=== PATIENT | male | born 1970 | race African-American/Black ===

== ENCOUNTER 2017-02-14 00:31 | Inpatient (IN) ==
[2017-02-14] MEDS ORDERED: ALBUTEROL/IPRATROPIUM 3 ML NEB RESP TX STA (00:50)
[2017-02-14] MEDS ORDERED: methylPREDNISolone SOD SUC 125 MG/2 ML VIAL IV STA (00:50)
[2017-02-14] MEDS ORDERED: SODIUM CHLORIDE 0.9% 2,000 ML IV STA (00:50)
[2017-02-14] MEDS ORDERED: VANCOMYCIN INJ 1,000 MG in SODIUM CHLORIDE 0.9% 250 ML IV STA (00:56)
[2017-02-14] MEDS ORDERED: PIPERACILLIN/TAZOBACTAM 3,375 MG in SODIUM CHLORIDE 0.9% 100 ML IV STA (00:56)
--- NOTE | 2017-02-14 01:01 | Emergency Department Note ---
Arrival - Arrival Chief Complaint: Fever ED Nursing Triage Note: EMS reports that patient has had an elevated temp that began at 16:00 today. Patient was given tylenol at 22:00. EMS states that patient's temp was 102.7 upon arrival to patient's home and that patient was diaphoretic. Patient has a history of paraplegia and is paralyzed from the waist down and contracted. Patient has an indwelling catheter. Recieved 700ml ns prior to arrival to ER. Patient's temperature 100.7 upon triage. 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 Although he was described as talking out of his head earlier, currently he is alert and oriented 3. The family denies any cough, nausea, vomiting, dysuria, or hematuria in recent days. Currently the patient is hypotensive and tachycardic. Onset (ago): hour(s) (Patient presents several hours post onset of symptoms) Allergies/Adverse Reactions: Allergies Allergy/AdvReac Type Severity Reaction Status Date / Time No Known Allergies Allergy Verified 08/28/15 13:56 Review of System - Review of System 12 point system: reviewed and no additional remarkable complaints except as stated - Review of System Constitutional: Present: as per HPI Cardiovascular: Present: as per HPI Genitourinary male: Present: as per HPI Neurological: Present: as per HPI Medical,Surgical,& Family Hx - Medical History Musculoskeletal: History of: Musculoskeletal Problems (paraplegia) - Social History Smoking Status: Never smoker Frequency of Alcohol Use: None Type of Drug Use: None Exam Physical Examination: GENERAL: Thin frail black male in moderate distress. HEENT: Normocephalic. No trauma. Moist mucous membranes. EOMI. PERRLA. ENT NML NECK: Supple. No adenopathy. CARDIAC: Regular. No murmurs. Heart rate 140 CHEST: Scattered occasional expiratory wheeze. No respiratory distress. ABDOMEN: Firm. Tender, very distended bladder. Hypoactive bowel sounds. EXTREMITIES: No trauma. Normal ROM. No pedal edema. SKIN: No diaphoresis. No rash. NEURO: Alert. Oriented 3. Left hemiparesis with upper extremity contractions with right-sided weakness but some preserved motor capabilities. Vital Signs: Vital Signs Temperature 100.7 F H 02/14/17 00:47 Pulse Rate 139 H 02/14/17 01:40 Respiratory Rate 18 02/14/17 01:40 Blood Pressure 69/48 02/14/17 00:47 O2 Sat by Pulse Oximetry 98 02/14/17 01:40 Course Course Narrative: Sinclair catheterization revealed maple syrup like urine in great quantities in excess of a liter drained initially. - Reevaluation(s) Reevaluation #1: Advised patient and family the need for hospitalization - Consultations Consultation #1: Discussed with Dr. Coughlin who will admit for Dr. Lilly for further evaluation treatment. Results - Labs CBC & BMP: 02/14/17 00:51 02/14/17 00:51 Labs: I reviewed the laboratory and noted the borderline white blood cell count, the elevated lactic acid, and the azotemic renal numbers. - Diagnostic Findings Procedure: Chest x-ray: image reviewed by me, report reviewed by me (Normal chest) Disposition Clinical Impression: Urosepsis, Asthma, Renal insufficiency Case discussed with: patient, patient's family Disposition: Still a Patient Condition: Critical Time of Disposition: 01:45
[2017-02-14 01:09] LABS: Basophils % 0.1 % (0.0-0.8); Eosinophils % 0.3 % (0.00-10.9); Hematocrit 35.3 VOL% (42.0-52.0); Hemoglobin 12.2 GM/DL (14.0-18.0); Immature Granulocytes % 1.6 %; Immature Granulocytes Absolute 0.17 #; Lymphocytes # 0.3 10*3/uL (1.4-4.0); Lymphocytes % 2.6 % (21.2-54.2); Mean Corpuscular HGB Conc 34.6 GM/DL (32-36); Mean Corpuscular Hemoglobin 28 PG (27-34); Mean Corpuscular Volume 80.6 FL (87-102); Mean Platelet Volume 9.1 FL (9.6-12.0); Monocytes % 0.3 % (1.7-12.7); Neutrophils % 95.1 % (38.7-73.9); Platelet Count 130 T/CUMM (130-400); Red Blood Count 4.38 MC/CUMM (3.8-5.5); Red Cell Distribution Width 14.7 % (9.3-17.3); White Blood Count 10.6 T/CUMM (4-12)
[2017-02-14] MEDS ORDERED: VANCOMYCIN 1,000 MG VIAL ONE (01:09)
[2017-02-14] MEDS ORDERED: methylPREDNISolone SOD SUC 125 MG/2 ML VIAL ONE (01:09)
[2017-02-14 01:27] LABS: INR 1.3
[2017-02-14] MEDS ORDERED: ALBUTEROL/IPRATROPIUM 3 ML NEB RESP TX PRN (01:34)
[2017-02-14] MEDS ORDERED: ONDANSETRON 4 MG/2 ML VIAL IV PRN (01:34)
[2017-02-14 01:43] LABS: Apearance,Urine Slightly Hazy (Clear); Bacteria,Urine Moderate /HPF (Few); Bilirubin,Urine Negative (Negative); Blood, Urine Moderate mg/dL (Negative); Glucose,Urine (UA) Negative (Negative); Ketones,Urine Negative (Negative); Nitrite,Urine Negative (Negative); Protein,Urine Negative; RBC,Urine <1 /HPF (0-4); Urine Color Yellow (Yellow); Urine Specific Gravity 1.003 (1.001-1.035); Urine Urobilinogen < 2.0 EU/DL (0.2-1.0); WBC,Urine 14 /HPF (0-6)
[2017-02-14 01:43] LABS: Alanine Aminotransferase 80 U/L (16-61); Albumin 2.8 G/DL (3.4-5.0); Alkaline Phosphatase 192 U/L (45-117); Amylase 40 U/L (25-115); Aspartate Amino Transferase 123 U/L (0-37); Blood Urea Nitrogen 28 MG/DL (7-18); Calcium 7.9 MG/DL (8.5-10.1); Glucose 105 MG/DL (74-106); Lactic Acid 3.3 MMOL/L (0.4-2.0); Osmolality,Calculated 267.7 MOS/KG (273-304); Potassium 3.7 MMOL/L (3.5-5.1); Sodium 131 MMOL/L (136-145); Total Protein 6.1 G/DL (6.4-8.3); Troponin I Only < 0.015 NG/ML (0.00-0.045)
[2017-02-14] MEDS ORDERED: methylPREDNISolone SOD SUC 125 MG/2 ML VIAL IV SCH (02:00)
[2017-02-14] MEDS ORDERED: DEXTROSE 5% NACL 0.45% 1,000 ML IV SCH ×2 (02:00→04:53)
[2017-02-14] MEDS: PIPERACILLIN/TAZOBACTAM 3,375 MG in SODIUM CHLORIDE 0.9% 100 ML IV SCH ×3 (03:44→18:20)
[2017-02-14] MEDS: VANCOMYCIN INJ 1,000 MG in SODIUM CHLORIDE 0.9% 250 ML IV SCH (03:44)
[2017-02-14 04:30] LABS: Band Neutrophils 14 % (0-10); Lymphocytes 1 % (20-55); Metamyelocytes 3 %; Myelocytes 2 %; Segmented Neutrophils 80 % (50-85)
[2017-02-14 04:31] LABS: Burr Cells 1+; Platelet Estimate Normal
[2017-02-14 04:32] LABS: Total Cells Counted 100
[2017-02-14] MEDS ORDERED: SODIUM CHLORIDE 0.9% 2,000 ML IV ONE (04:52)
--- NOTE | 2017-02-14 04:52 | EKG Report ---
Stationary ECG Study 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
--- NOTE | 2017-02-14 06:38 | Internal Med History&Physical ---
Assessment and Plan (1) Sepsis Status: Acute Assessment and plan: 46-year-old male admitted to ICU * Sepsis probably related to urinary tract infection. Patient was started on IV antibiotics. Blood and urine cultures were done. Patient apparently developed a rash with vancomycin. Will consult ID to follow patient * Hypotension and tachycardia. Related to above. Patient has been given several fluid boluses. His blood pressure is tending to improve. Clinically he looks okay * History of spinal cord injury with paraplegia. Patient had impaction with was removed * Chronic pain syndrome. He is on multiple pain medications * Decubitus ulcers on his heels. Will consult Dr. shah * Patient is admitted to Dr. reagan service Current Visit: Yes (2) Urinary tract infection Status: Acute Current Visit: Yes (3) Hypotension Status: Acute Current Visit: Yes (4) Paraplegia Status: Acute Current Visit: Yes (5) Spinal cord injury Status: Acute Current Visit: Yes (6) History of DVT (deep vein thrombosis) Status: Acute Current Visit: Yes History of Present Illness Chief complaint: Fever and not feeling well History of present illness: Mr. George is a 46 year old male with history of paraplegia, DVT and IVC filter placement, left-sided hemiparesis and brain injury secondary to a fall from a bridge few years ago on disability. He went to the emergency room with fever and not feeling well. Patient had high-grade fever at home and was diaphoretic. He was evaluated in the emergency room and was found to have acute renal failure with urinary tract infection. He was hypertensive and tachycardic. He was admitted to the intensive care unit. Patient states that he feels better. He lives at home with his mother. He has a home health who comes and takes care of him. He has recently started seeing Dr. reagan. He denies any chest pain or shortness of breath. He denies any nausea vomiting or diarrhea. Patient is a smoker. Home Medications Medication Instructions Recorded Confirmed Type Baclofen [Baclofen] 10 mg PO TID W/MEALS 02/14/17 02/14/17 History Gabapentin [Gabapentin] 600 mg PO QID 02/14/17 02/14/17 History Hydrocodone/Acetaminophen [[place] 1 each PO TID PRN 02/14/17 02/14/17 History 10-325 Tablet] Rivaroxaban [Xarelto] 20 mg PO DAILY 02/14/17 02/14/17 History fentaNYL [Fentanyl 25 mcg/hr Patch] 25 patch TOP Q3DAY 02/14/17 02/14/17 History Allergies Allergy/AdvReac Type Severity Reaction Status Date / Time No Known Allergies Allergy Verified 08/28/15 13:56 Medical,Surgical,& Family Hx - Medical History Neurology: History of: Peripheral Neuropathy, Neurological Problems (History of paraplegia after a fall and suffering accident) Genitourinary: History of: Bladder Problem (Neurogenic Bladder) Musculoskeletal: History of: Back/Neck Problems (spinal cord injury), Musculoskeletal Problems (paraplegia) Other: History of: Miscellaneous Medical Problems (Lower Extremity DVT Chronic pain) - Surgical History Orthopedic Surgeries: Surgical HX of;: Implanted Devices (IVC filter) - Family History Family History: Reports;: Family Cancer (Brother), Family Diabetes (Mother), Family Heart Disease (Aunts), Family Hypertension (Mother Sisters) - Social History Smoking Status: Never smoker Frequency of Alcohol Use: None Type of Drug Use: None Marital Status: Single Lives With:: Parent (Mother) Functional capacity: wheelchair bound 12 point system: reviewed and no additional remarkable complaints except as stated (As mentioned in HPI) Exam - Constitutional Vitals: Period Temp Pulse Resp BP Sys/Ribera Pulse Ox Last 24 Hr 99.3 F-100.7 F 117-141 14-24 58-88/41-52 95-100 Exam: Examination: GENERAL: NAD. HEENT: PERRLA. EOMI. Mucous membranes are dry NECK: Neck is supple. No JVD. No carotid bruit. No thyromegaly. CVS: Regular rate and rhythm. S1 and S2 are normal. Tachycardic. RESPIRATORY: Lungs are clear. No rales or rhonchi. ABDOMEN: Soft and nontender. Bowel sounds are present. No hepatosplenomegaly. EXT: No edema. Peripheral pulses are present. MANAGER RELATIONSHIP: Patient is awake, alert and oriented to time place and person. Cranial nerves II through XII are grossly intact. Patient is a paraplegic with 2/5 in left upper extremity and 3/5 in right upper extremity SKIN: Warm and dry. Decubitus ulcer on the left heel. Superficial on the right heel MSK: Patient has contracture of both upper extremities left more than right. Results - Labs CBC & BMP: 02/14/17 00:51 02/14/17 00:51 Lab Results: I have reviewed the past 24 hour labs
--- NOTE | 2017-02-14 07:06 | EKG Report ---
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
--- NOTE | 2017-02-14 07:17 | XRay Report ---
XR chest 1V portable Indication: Shortness of breath, fever Comparison: None available Findings: The heart and mediastinum are normal in size and configuration. The pulmonary vascularity is normal in caliber. No lung infiltrates, effusions, pneumothorax or other abnormality is demonstrated. Impression: Normal chest x-ray PROCEDURE INTERPRETED AT [facility] [place] DEPARTMENT OF RADIOLOGY Final Report Signed by: Dr. Timi Wolff
--- NOTE | 2017-02-14 07:26 | CT Report ---
CT brain Indication: Altered mental status Comparison: None available Technique: Axial CT imaging of the brain is performed without contrast with 3 mm increments. Findings: No evidence of hemorrhage, mass mass effect midline shift or acute infarct seen. The brain parenchyma attenuation and differentiation appears within normal limits. The ventricles and cisterns are normal in caliber. No cranial or skull base abnormality is identified. Impression: No evidence of abnormality demonstrated. This CT exam was performed using one or more the following dose reduction techniques: Automated exposure control, adjustment of the MA and/or KV according to patient size, or use of iterative reconstruction technique. PROCEDURE INTERPRETED AT [facility] DEPARTMENT OF RADIOLOGY Final Report Signed by: Dr. Timi Wolff
[2017-02-14 07:34] LABS: Alanine Aminotransferase 71 U/L (16-61); Albumin 2.1 G/DL (3.4-5.0); Alkaline Phosphatase 91 U/L (45-117); Aspartate Amino Transferase 84 U/L (0-37); Blood Urea Nitrogen 26 MG/DL (7-18); Calcium 6.8 MG/DL (8.5-10.1); Glucose 155 MG/DL (74-106); Osmolality,Calculated 277.1 MOS/KG (273-304); Potassium 3.7 MMOL/L (3.5-5.1); Sodium 135 MMOL/L (136-145); Total Protein 4.9 G/DL (6.4-8.3); Troponin I Only 0.015 NG/ML (0.00-0.045)
[2017-02-14] MEDS: SODIUM CHLORIDE 0.9% 1,000 ML IV SCH ×3 (08:00→21:25)
--- NOTE | 2017-02-14 08:53 | Family Practice Progress Note ---
Family Practice - PN: Subj Interval history: Patient seen and examined in the ICU, admitted for altered mental status, intravascular volume depletion,urosepsis Overnight he had an event of A. fib, Temperature is improving, last temp 99.8 Patient mentions he is feeling a bit better than yesterday. Had some breakfast this a.m., no nausea or vomiting. Patient was using urinal /and catheter at home, he had noticed decreased urine output since past 3-4 days. No burning micturition(patient has paraplegia). Patient keeps heater in the room does not have air on in his home, as per the mother, the caregiver, Patient is on chronic pain medication, goes to pain clinic with ,([place] , fentanyl patch, baclofen, gabapentin noted from the clinic notes) He has home physical therapy and home health. And is wheelchair bound at home. Exam (Progress Note) - Constitutional Vitals: Period Temp Pulse Resp BP Sys/Ribera Pulse Ox Last 24 Hr 99.3 F-100.7 F 111-141 14-24 58-88/41-54 95-100 Exam: GENERAL APPEARANCE: alert and oriented X3, , in no acute distress, Has indwelling catheter in place. HEENT: normal. EYES: extraocular movement intact (EOMI), conjunctiva clear, normal. NECK/THYROID: neck supple, full range of motion, no cervical lymphadenopathy, no thyromegaly. HEART: Tachycardic at the time of exam ,? Regular rhythm, no murmurs, rubs, gallops. LUNGS: clear to auscultation bilaterally, no wheezes, rales, rhonchi. ABDOMEN: Mildly distended, nontender. no organomegaly , bowel sounds present. EXTREMITIES: no edema. Decubitus foot ulcers NEUROLOGIC: alert and oriented, cranial nerves 2-12 grossly intact, strength UE , right3/5, left2/5. Lower extremity strength bilaterally 1 /5 with contracture at left upper extremity more than right. Results - Labs CBC & BMP: 02/14/17 00:51 02/14/17 06:49 Lab Results: I have reviewed the past 24 hour labs Labs: From 01/01/2017 clinic labs Baseline H&H 13.7/43.9, BUN/creatinine 11/0.77 - Impressions Reviewed chest x-ray and CT head reports Assessment and Plan (1) Sepsis Status: Acute Assessment and plan: Secondary to UTI, On day 1 , Zosyn, Vanc, ID consult done. Awaiting blood and urine culture results. 2. Hypotension, secondary to sepsis, continue IV fluids, normal saline. 3. History of DVT, on Xarelto, continue. 4. Paraplegia, chronic secondary to cervical spinal cord injury, has decubitus ulcers, consult surgery. 5. Current Visit: Yes (2) Urinary tract infection Status: Acute Current Visit: Yes (3) History of DVT (deep vein thrombosis) Status: Chronic Current Visit: Yes (4) Hypotension Status: Acute Current Visit: Yes (5) Paraplegia Status: Chronic Current Visit: Yes (6) Spinal cord injury Status: Chronic Current Visit: Yes (7) Chronic constipation Status: Chronic Current Visit: Yes
[2017-02-14] MEDS: PANTOPRAZOLE 40 MG TABLET PO SCH (09:10)
[2017-02-14] MEDS: GABAPENTIN 600 MG TABLET PO SCH ×4 (09:10→21:24)
[2017-02-14] MEDS: RIVAROXABAN 20 MG TABLET PO SCH (09:11)
--- NOTE | 2017-02-14 10:43 | Cardiology Consult Note ---
Assessment and Plan - Time spent with patient Time spent with patient: Greater than 30 minutes (1) New onset atrial fibrillation Status: Acute Assessment and plan: SEE PLAN OF CARE LISTED BELOW. Current Visit: Yes (2) Acute kidney injury Status: Acute Assessment and plan: SEE PLAN OF CARE LISTED BELOW. Current Visit: Yes (3) Sepsis Status: Suspected Assessment and plan: SEE PLAN OF CARE LISTED BELOW. Current Visit: Yes (4) Presence of IVC filter Status: Chronic Assessment and plan: SEE PLAN OF CARE LISTED BELOW. Current Visit: Yes (5) Decubitus ulcer of right heel, stage 1 Status: Acute Assessment and plan: SEE PLAN OF CARE LISTED BELOW. Current Visit: Yes (6) Chronic constipation Status: Chronic Assessment and plan: SEE PLAN OF CARE LISTED BELOW. Current Visit: Yes (7) History of DVT (deep vein thrombosis) Status: Chronic Assessment and plan: SEE PLAN OF CARE LISTED BELOW. Current Visit: No (8) Paraplegia Status: Chronic Assessment and plan: SEE PLAN OF CARE LISTED BELOW. Current Visit: No (9) Spinal cord injury Status: Chronic Assessment and plan: SEE PLAN OF CARE LISTED BELOW. Current Visit: No History of Present Illness - Data of Consult Patient: new to practice Consult date: 02/14/17 Requesting Physician: Matthias Lilly - Consult Narrative Reason for consult: NEW ONSET AFIB History of present illness: Youth Counselor: John Summers Mr. George is a 46 year old male without known history of coronary artery disease , not routinely followed by cardiology. Patient has cardiac risk factors significant for sedentary lifestyle. He has a past medical history of DVT with IVC filter. 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 Paralyzed from the waist down. Patient has never been seen by cardiology. Patient presented to [facility] yesterday with altered mental status and fever. Patient reports that he developed fever Friday afternoon. He also had associated headache intermittent confusion, diaphoresis and dizziness. He is wheelchair-bound at home. He denies any associated chest pain, heaviness or tightness. No associated shortness of breath, dysuria or hematuria. He does confirm a cough. Nonproductive. He denies any heart racing or palpitations. Never been diagnosed with atrial fibrillation or any other cardiac dysrhythmias. Patient's caregiver noticed that he was intermittently confused and talking out of his head. Therefore, she thought that he needed to be further evaluated in the emergency department. Upon arrival to the emergency room, he was noted to be in sinus tachycardia and hypotensive. He was transported to the ICU and admitted under hospital medicine service. Overnight, he was noted to be in atrial fibrillation with intermittent rapid ventricular response. Subsequently, cardiology has been consulted as this is a new diagnosis. Patient was seen and examined with Dr. Summers in the ICU. He continues to be in atrial fibrillation. Now he is rate controlled, heart rates in the 90s. He has been hypotensive overnight. However, this has resolved in systolic blood pressure is in the low 100s at present. Recommend continuation of aggressive IV fluids. Patient's new onset of atrial fibrillation is most likely secondary to his acute illness. At this point, we will continue to anticoagulate him with Xarelto. Will rate control with beta-sherrie when his blood pressure will allow. Can consider adding amiodarone. If RVR returns, can consider cardioversion as patient is chronically anticoagulated. Echocardiogram has been ordered. If cardiomyopathy is present can consider cardioversion. Further recommendations to follow per Dr. Summers. ASSESSMENT/PLAN 1. NEW ONSET ATRIAL FIBRILLATION - Upon arrival to the emergency department, patient was noted to be in sinus tachycardia. Overnight, he converted to atrial fibrillation with episodes of rapid ventricular response. He continues to be in atrial fibrillation, now rate controlled. This is most likely secondary to patient's acute illness. At this point, we will continue to anticoagulate him with Xarelto. Will optimize his rate with beta-sherrie when his blood pressure will allow. Can consider amiodarone if needed. If RVR returns, can consider cardioversion as patient is chronically anticoagulated. Echocardiogram has been ordered. If cardiomyopathy is present can consider cardioversion. Further recommendations to follow per Dr. Summers. 2. ACUTE KIDNEY INJURY - Sepsis is suspected. Continue IVF's. Blood pressure has improved. Renal US ordered. Daily BMP. 3. UROSEPSIS - Continue IV antibiotics, IV fluids. Blood cultures pending. Management per attending/Infectious diseases. 4. HISTORY OF DVT - Continue Xarelto. IVC filter in place. 5. PARAPLEGIA, SPINAL CORD INJURY - Continue current plan of care 6. DECUBITUS ULCERS TO HEELS - Dr. Otero is following. 7. CHRONIC PAIN SYNDROME - Defer to attending. 8. CHRONIC CONSTIPATION - Defer management to attending TAD TO COMPLETE, CRAIG IS NOT WORKING. CC: Matthias Lilly MD - Home Medications and Allergies Home Medications: Home Medications Medication Instructions Recorded Confirmed Type Baclofen [Baclofen] 10 mg PO TID W/MEALS 02/14/17 02/14/17 History Gabapentin [Gabapentin] 600 mg PO QID 02/14/17 02/14/17 History Hydrocodone/Acetaminophen [[place] 1 each PO TID PRN 02/14/17 02/14/17 History 10-325 Tablet] Rivaroxaban [Xarelto] 20 mg PO DAILY 02/14/17 02/14/17 History fentaNYL [Fentanyl 25 mcg/hr Patch] 25 patch TOP Q3DAY 02/14/17 02/14/17 History Allergies/Adverse Reactions: Allergies Allergy/AdvReac Type Severity Reaction Status Date / Time No Known Allergies Allergy Verified 08/28/15 13:56 - Constitutional Constitutional: Present: as per HPI, chills, fatigue, fever(s), headache(s), malaise - Cardiovascular Cardiovascular: Present: as per HPI, diaphoresis, lightheadedness. Absent: chest pain at rest, chest pain with activity, claudication, dyspnea, dyspnea on exertion, edema, radiating jaw, neck or arm pain, orthopnea, palpitations, PND - Respiratory Respiratory: Present: as per HPI, cough. Absent: dyspnea, hemoptysis, dyspnea on exertion, wheezing, snoring, pain on inspiration - Neurological Neurological: Present: as per HPI, confusion, dizziness, headache(s). Absent: syncope Medical,Surgical,& Family Hx - Medical History Neurology: History of: Peripheral Neuropathy, Neurological Problems (History of paraplegia after a fall and suffering accident) Genitourinary: History of: Bladder Problem (Neurogenic Bladder) Musculoskeletal: History of: Back/Neck Problems (spinal cord injury), Musculoskeletal Problems (paraplegia) Other: History of: Miscellaneous Medical Problems (Lower Extremity DVT Chronic pain) - Surgical History Orthopedic Surgeries: Surgical HX of;: Implanted Devices (IVC filter) - Family History Family History: Reports;: Family Cancer (Brother), Family Diabetes (Mother), Family Hypertension (Mother Sisters) - Social History Smoking Status: Never smoker Frequency of Alcohol Use: None Type of Drug Use: None Functional capacity: wheelchair bound Physical Examination Vital Signs Pulse Ox 96 02/14/17 00:31 Exam: General: Appears well with no apparent distress. HEENT: PERRL, normocephalic, atraumatic. Mucous membranes moist. No jaundice noted. Conjunctiva moist and clear, sclerae anicteric Neck: No JVD/HJR, no thyromegaly or lymphadenopathy noted. Cardiac: Irregular rhythm, rate controlled. Lungs: Clear to auscultation without accessory muscle use to assist the respiratory pattern. Oxygen via nasal cannula. Abdomen: Soft, bowel sounds hypoactive. Nontender and nondistended. Extremities: No clubbing, cyanosis noted. No edema noted. Upper extremity pulses 2+. Lower extremity pulses 2+. Capillary refill less than 3 seconds. Skin: Small skin tear noted to sacrum. Decubitus ulcers noted to bilateral heels. Neuro: Awake, alert and oriented 3. Paraplegic. Result/EKG - Labs CBC & BMP: 02/14/17 00:51 02/14/17 06:49 Lab Results: I have reviewed the past 24 hour labs Labs: Laboratory Results - last 24 hr 02/14/17 02/14/17 02/14/17 00:51 00:51 00:51 WBC 10.6 RBC 4.38 Hgb 12.2 L Hct 35.3 L MCV 80.6 L MCH 28 MCHC 34.6 RDW 14.7 Plt Count 130 MPV 9.1 L Neut % (Auto) 95.1 H Lymph % (Auto) 2.6 L Person % (Auto) 0.3 L Eos % (Auto) 0.3 Baso % (Auto) 0.1 Neut # (Auto) 10.0 H Lymph # (Auto) 0.3 L Person # (Auto) 0.0 L Eos # (Auto) 0.0 Baso # (Auto) 0.0 Total Counted 100 Immature Gran % 1.6 Nucleated RBC % 0.0 Immature Gran # 0.17 Segmented Neutrophils 80 Band Neutrophils 14 H Lymphocytes 1 L Metamyelocytes 3 Myelocytes 2 Nucleated RBCs # 0.00 Platelet Estimate Normal Immature Plt Fraction 0.0 [place] Cells 1+ INR 1.3 PT Patient/Control Mix 14.0 Circ Anticoag PTT Sodium 131 L Potassium 3.7 Chloride 99 Carbon Dioxide 21 Anion Gap 14.7 BUN 28 H Creatinine 2.50 H GFR Calculation 36 BUN/Creatinine Ratio 11.00 Glucose 105 Calculated Osmolality 267.7 L Lactic Acid 3.3 H Calcium 7.9 L Total Bilirubin 0.60 AST 123 H ALT 80 H Alkaline Phosphatase 192 H Lactate Dehydrogenase 249 H Total Creatine Kinase 183 CK-MB (CK-2) 1.5 Troponin I < 0.015 Total Protein 6.1 L Albumin 2.8 L Globulin 3.3 Albumin/Globulin Ratio 0.8 L Amylase 40 Lipase 85.0 Urine Color Urine Appearance Urine pH Ur Specific [place] Urine Protein Urine Glucose (UA) Urine Ketones Urine Blood Urine Nitrate Urine Bilirubin Urine Urobilinogen Urine Leukocytes Urine RBC Urine WBC Urine Bacteria Ur Culture Indicated? 02/14/17 02/14/17 02/14/17 01:01 01:01 06:49 WBC RBC Hgb Hct MCV MCH MCHC RDW Plt Count MPV Neut % (Auto) Lymph % (Auto) Person % (Auto) Eos % (Auto) Baso % (Auto) Neut # (Auto) Lymph # (Auto) Person # (Auto) Eos # (Auto) Baso # (Auto) Total Counted Immature Gran % Nucleated RBC % Immature Gran # Segmented Neutrophils Band Neutrophils Lymphocytes Metamyelocytes Myelocytes Nucleated RBCs # Platelet Estimate Immature Plt Fraction [place] Cells INR PT Patient/Control Mix Circ Anticoag PTT 35.9 Sodium 135 L Potassium 3.7 Chloride 106 Carbon Dioxide 17 L Anion Gap 15.7 H BUN 26 H Creatinine 2.10 H GFR Calculation 46 BUN/Creatinine Ratio 12.00 Glucose 155 H Calculated Osmolality 277.1 Lactic Acid Calcium 6.8 L Total Bilirubin 0.60 AST 84 H ALT 71 H Alkaline Phosphatase 91 Lactate Dehydrogenase Total Creatine Kinase 181 CK-MB (CK-2) 2.2 Troponin I 0.015 Total Protein 4.9 L Albumin 2.1 L Globulin 2.8 Albumin/Globulin Ratio 0.7 L Amylase Lipase Urine Color Yellow Urine Appearance Slightly hazy Urine pH 7.0 Ur Specific [place] 1.003 Urine Protein Negative Urine Glucose (UA) Negative Urine Ketones Negative Urine Blood Moderate Urine Nitrate Negative Urine Bilirubin Negative Urine Urobilinogen < 2.0 H Urine Leukocytes Large H Urine RBC <1 Urine WBC 14 Urine Bacteria Moderate Ur Culture Indicated? Results to follow 02/14/17 06:49 WBC RBC Hgb Hct MCV MCH MCHC RDW Plt Count MPV Neut % (Auto) Lymph % (Auto) Person % (Auto) Eos % (Auto) Baso % (Auto) Neut # (Auto) Lymph # (Auto) Person # (Auto) Eos # (Auto) Baso # (Auto) Total Counted Immature Gran % Nucleated RBC % Immature Gran # Segmented Neutrophils Band Neutrophils Lymphocytes Metamyelocytes Myelocytes Nucleated RBCs # Platelet Estimate Immature Plt Fraction [place] Cells INR PT Patient/Control Mix Circ Anticoag PTT Sodium Potassium Chloride Carbon Dioxide Anion Gap BUN Creatinine GFR Calculation BUN/Creatinine Ratio Glucose Calculated Osmolality Lactic Acid 3.7 H Calcium Total Bilirubin AST ALT Alkaline Phosphatase Lactate Dehydrogenase Total Creatine Kinase CK-MB (CK-2) Troponin I Total Protein Albumin Globulin Albumin/Globulin Ratio Amylase Lipase Urine Color Urine Appearance Urine pH Ur Specific [place] Urine Protein Urine Glucose (UA) Urine Ketones Urine Blood Urine Nitrate Urine Bilirubin Urine Urobilinogen Urine Leukocytes Urine RBC Urine WBC Urine Bacteria Ur Culture Indicated?
[2017-02-14] MEDS ORDERED: CHLORHEXIDINE 4% SOLN 118 ML BOTTLE TOP ONE (11:05)
--- NOTE | 2017-02-14 11:12 | General Surgery Consult Note ---
Assessment and Plan - Time spent with patient Time spent with patient: Greater than 30 minutes (1) Decubitus ulcer of right heel, stage 1 Status: Acute Assessment and plan: Impression: Stage I decubitus right heel and first metatarsal head area Plan: Wound care with offloading and padding Current Visit: Yes (2) Spinal cord injury Status: Chronic Assessment and plan: Impression: Quadriplegia functional Plan: Protective care sacrum and hip and back Current Visit: Yes (3) History of DVT (deep vein thrombosis) Status: Chronic Assessment and plan: Impression: History of DVT Plan: Lovenox and compression stockings Current Visit: Yes (4) Sepsis Status: Acute Assessment and plan: Impression: Sepsis with hypotension probably urosepsis Plan: Antibiotics and hospitalist following Current Visit: Yes History of Present Illness Chief complaint: Right heel ulcer History of present illness: Mr. George is a 46 year old male -[place] who is a functional quad from the cervical spine injury. He is in with urosepsis and we were asked to see him for heel ulcers. On exam there was no ulcer on the left heel the right seem to have no chronic eschar possibly an old ulcer is mostly healed. There is another little callused area on the foot and there is a questionable spot on the left great toe that needs to be observed. No true breakdown or ulcerations present at this time but will start some wound care to try to get these things improved. Home Medications Medication Instructions Recorded Confirmed Type Baclofen [Baclofen] 10 mg PO TID W/MEALS 02/14/17 02/14/17 History Gabapentin [Gabapentin] 600 mg PO QID 02/14/17 02/14/17 History Hydrocodone/Acetaminophen [[place] 1 each PO TID PRN 02/14/17 02/14/17 History 10-325 Tablet] Rivaroxaban [Xarelto] 20 mg PO DAILY 02/14/17 02/14/17 History fentaNYL [Fentanyl 25 mcg/hr Patch] 25 patch TOP Q3DAY 02/14/17 02/14/17 History Allergies Allergy/AdvReac Type Severity Reaction Status Date / Time No Known Allergies Allergy Verified 08/28/15 13:56 Medical,Surgical,& Family Hx - Medical History Neurology: History of: Peripheral Neuropathy, Neurological Problems (History of paraplegia after a fall and suffering accident) Genitourinary: History of: Bladder Problem (Neurogenic Bladder) Musculoskeletal: History of: Back/Neck Problems (spinal cord injury), Musculoskeletal Problems (paraplegia) Other: History of: Miscellaneous Medical Problems (Lower Extremity DVT Chronic pain) - Surgical History Orthopedic Surgeries: Surgical HX of;: Implanted Devices (IVC filter) - Family History Family History: Reports;: Family Cancer (Brother), Family Diabetes (Mother), Family Heart Disease (Aunts), Family Hypertension (Mother Sisters) - Social History Smoking Status: Never smoker Frequency of Alcohol Use: None Type of Drug Use: None 12 point system: reviewed and no additional remarkable complaints except as stated Exam - Constitutional Vitals: Period Temp Pulse Resp BP Sys/Ribera Pulse Ox Last 24 Hr 99.3 F-100.7 F 98-141 14-24 58-106/41-69 95-100 General appearance: no acute distress, other (Paraplegic, alert and oriented; cooperative and an accurate historian) - Head Head exam: Present: normal inspection - ENT ENT exam: Present: normal exam - Neck Neck exam: Present: normal inspection - Respiratory Respiratory exam: Present: clear to auscultation bilaterally - Cardiovascular Cardiovascular exam: Present: RRR - GI/Abdominal GI/Abdominal exam: Present: hypoactive bowel sounds, soft - Extremities Exam Extremities exam: Present: other (Small abrasion are callus of the right heel and of the medial first metatarsal. No ulcer on the left heel but there is a little blister area on the left great toe. Pulses are palpable 3+ dorsalis pedis) - Back Exam Back exam: Present: normal inspection - Neurological Exam Neurological exam: Present: alert, oriented X3, CN II-XII intact, other ( Paralyzed from the neck down with some function of the upper extreme) - Skin Skin exam: Present: normal color, warm, dry Results - Labs CBC & BMP: 02/14/17 00:51 02/14/17 06:49 Lab Results: I have reviewed the past 24 hour labs
--- NOTE | 2017-02-14 12:13 | Infectious Disease Consult ---
History of Present Illness Chief complaint: Sepsis History of present illness: Mr. George is a 46 year old male who is a functional quadriplegic since the past 2 years presented to hospital yesterday after he was experiencing worsening malaise and generalized body aches and fever for 2 days prior. He had decubitus ulcers in the past but those have healed, he has of condom catheter at baseline. He has not been having any cough or shortness of breath, no vomiting or diarrhea but he has been anorexic with a bit of nausea. He was febrile to 100.7 on admission and had some pyuria. He was put on empiric vancomycin and Zosyn and I am asked to assist with management. Impression: SIRS -it is not obvious that is whether the patient has an infection. He did have mild pyuria so UTI is possible but not definite. He does not have any open wounds and x-rays completely clear. We need to check for possible bloodstream infection. Recommendations: I agree with current empiric antibiotics. Monitor renal function closely on the vancomycin. If the blood cultures are negative at day 3 and the patient is clinically better than I would probably stop antibiotics. Thank you very much for the consult. Will follow. Discussed with patient's mother at bedside. Home Medications Medication Instructions Recorded Confirmed Type Baclofen [Baclofen] 10 mg PO TID W/MEALS 02/14/17 02/14/17 History Gabapentin [Gabapentin] 600 mg PO QID 02/14/17 02/14/17 History Hydrocodone/Acetaminophen [[place] 1 each PO TID PRN 02/14/17 02/14/17 History 10-325 Tablet] Rivaroxaban [Xarelto] 20 mg PO DAILY 02/14/17 02/14/17 History fentaNYL [Fentanyl 25 mcg/hr Patch] 25 patch TOP Q3DAY 02/14/17 02/14/17 History Allergies Allergy/AdvReac Type Severity Reaction Status Date / Time No Known Allergies Allergy Verified 08/28/15 13:56 12 point system: reviewed and no additional remarkable complaints except as stated (Per HPI) Medical,Surgical,& Family Hx - Medical History Neurology: History of: Peripheral Neuropathy, Neurological Problems (History of paraplegia after a fall and suffering accident) Genitourinary: History of: Bladder Problem (Neurogenic Bladder) Musculoskeletal: History of: Back/Neck Problems (spinal cord injury), Musculoskeletal Problems (paraplegia) Other: History of: Miscellaneous Medical Problems (Lower Extremity DVT Chronic pain) - Surgical History Orthopedic Surgeries: Surgical HX of;: Implanted Devices (IVC filter) - Family History Family History: Reports;: Family Cancer (Brother), Family Diabetes (Mother), Family Heart Disease (Aunts), Family Hypertension (Mother Sisters) - Social History Smoking Status: Never smoker Frequency of Alcohol Use: None Type of Drug Use: None Infectious Disease Exam H&P - Constitutional Vitals: Vital Signs Temp Pulse Resp BP Pulse Ox 99.7 F H 105 H 13 107/82 97 02/14/17 05:01 02/14/17 11:00 02/14/17 11:00 02/14/17 11:00 02/14/17 11:00 Intake and Output 02/13/17 02/14/17 02/14/17 23:59 07:59 15:59 Intake Total 4880 / 4880 120 / 120 Output Total 1200 / 1200 1401 / 1401 Balance 3680 / 3680 -1281 / -1281 Intake: IV 4750 / 4750 D5 1/2Ns 1,000 ml @ 125 400 / 400 mls/hr IV .Q8H ERINN Rx#: [id number] Zosyn 3,375 mg In Ns 100 100 / 100 ml @ 25 mls/hr IV 1X ED STA Rx#:[id number] Ns 2,000 ml @ 999 mls/hr 4000 / 4000 IV BOLUS ONE Rx#: [id number] Vancomycin Inj 1,000 mg 250 / 250 In Ns 250 ml @ 250 mls/hr IV 1X ED STA Rx#: [id number] Oral 130 / 130 120 / 120 Output: Urine 500 / 500 1400 / 1400 Post Void Residual Amount 700 / 700 Uretheral (Sinclair) 700 / 700 Stool / Other: Voiding Method Indwelling Catheter Indwelling Catheter # Bowel Movements 1 1 Weight 71.668 kg Patient Weight 02/14/17 23:59 Weight 71.668 kg Exam: General: Patient comfortable, nontoxic appearing, he is quite conversant HEENT: Mucous membranes pink and moist, anicteric acyanotic, AGUSTIN, no oropharyngeal exudates Neck: Supple, no thyroid gland enlargement Respiratory system: Breath sounds vesicular, no crepitations or wheezes Cardiovascular: Normal S1 and S2, no murmurs appreciated Abdomen: Normal bowel sounds, soft nontender throughout, no organomegaly or mass Genitourinary: No suprapubic pain or bladder distention, crystal clear urine from Sinclair catheter Extremities: no edema, healed ulcer to left heel Skin: No rash, hypopigmentation and sacral area from healed ulcer Reports - Labs CBC & BMP: 02/14/17 00:51 02/14/17 06:49 Labs: Laboratory Results - last 24 hr 02/14/17 02/14/17 02/14/17 00:51 00:51 00:51 WBC 10.6 RBC 4.38 Hgb 12.2 L Hct 35.3 L MCV 80.6 L MCH 28 MCHC 34.6 RDW 14.7 Plt Count 130 MPV 9.1 L Neut % (Auto) 95.1 H Lymph % (Auto) 2.6 L [place] % (Auto) 0.3 L Eos % (Auto) 0.3 Baso % (Auto) 0.1 Neut # (Auto) 10.0 H Lymph # (Auto) 0.3 L [place] # (Auto) 0.0 L Eos # (Auto) 0.0 Baso # (Auto) 0.0 Total Counted 100 Immature Gran % 1.6 Nucleated RBC % 0.0 Immature Gran # 0.17 Segmented Neutrophils 80 Band Neutrophils 14 H Lymphocytes 1 L Metamyelocytes 3 Myelocytes 2 Nucleated RBCs # 0.00 Platelet Estimate Normal Immature Plt Fraction 0.0 [place] Cells 1+ INR 1.3 PT Patient/Control Mix 14.0 Circ Anticoag PTT Sodium 131 L Potassium 3.7 Chloride 99 Carbon Dioxide 21 Anion Gap 14.7 BUN 28 H Creatinine 2.50 H GFR Calculation 36 BUN/Creatinine Ratio 11.00 Glucose 105 Calculated Osmolality 267.7 L Lactic Acid 3.3 H Calcium 7.9 L Total Bilirubin 0.60 AST 123 H ALT 80 H Alkaline Phosphatase 192 H Lactate Dehydrogenase 249 H Total Creatine Kinase 183 CK-MB (CK-2) 1.5 Troponin I < 0.015 Total Protein 6.1 L Albumin 2.8 L Globulin 3.3 Albumin/Globulin Ratio 0.8 L Amylase 40 Lipase 85.0 Urine Color Urine Appearance Urine pH Ur Specific [place] Urine Protein Urine Glucose (UA) Urine Ketones Urine Blood Urine Nitrate Urine Bilirubin Urine Urobilinogen Urine Leukocytes Urine RBC Urine WBC Urine Bacteria Ur Culture Indicated? 02/14/17 02/14/17 02/14/17 01:01 01:01 06:49 WBC RBC Hgb Hct MCV MCH MCHC RDW Plt Count MPV Neut % (Auto) Lymph % (Auto) [place] % (Auto) Eos % (Auto) Baso % (Auto) Neut # (Auto) Lymph # (Auto) [place] # (Auto) Eos # (Auto) Baso # (Auto) Total Counted Immature Gran % Nucleated RBC % Immature Gran # Segmented Neutrophils Band Neutrophils Lymphocytes Metamyelocytes Myelocytes Nucleated RBCs # Platelet Estimate Immature Plt Fraction [place] Cells INR PT Patient/Control Mix Circ Anticoag PTT 35.9 Sodium 135 L Potassium 3.7 Chloride 106 Carbon Dioxide 17 L Anion Gap 15.7 H BUN 26 H Creatinine 2.10 H GFR Calculation 46 BUN/Creatinine Ratio 12.00 Glucose 155 H Calculated Osmolality 277.1 Lactic Acid Calcium 6.8 L Total Bilirubin 0.60 AST 84 H ALT 71 H Alkaline Phosphatase 91 Lactate Dehydrogenase Total Creatine Kinase 181 CK-MB (CK-2) 2.2 Troponin I 0.015 Total Protein 4.9 L Albumin 2.1 L Globulin 2.8 Albumin/Globulin Ratio 0.7 L Amylase Lipase Urine Color Yellow Urine Appearance Slightly hazy Urine pH 7.0 Ur Specific [place] 1.003 Urine Protein Negative Urine Glucose (UA) Negative Urine Ketones Negative Urine Blood Moderate Urine Nitrate Negative Urine Bilirubin Negative Urine Urobilinogen < 2.0 H Urine Leukocytes Large H Urine RBC <1 Urine WBC 14 Urine Bacteria Moderate Ur Culture Indicated? Results to follow 02/14/17 06:49 WBC RBC Hgb Hct MCV MCH MCHC RDW Plt Count MPV Neut % (Auto) Lymph % (Auto) [place] % (Auto) Eos % (Auto) Baso % (Auto) Neut # (Auto) Lymph # (Auto) [place] # (Auto) Eos # (Auto) Baso # (Auto) Total Counted Immature Gran % Nucleated RBC % Immature Gran # Segmented Neutrophils Band Neutrophils Lymphocytes Metamyelocytes Myelocytes Nucleated RBCs # Platelet Estimate Immature Plt Fraction [place] Cells INR PT Patient/Control Mix Circ Anticoag PTT Sodium Potassium Chloride Carbon Dioxide Anion Gap BUN Creatinine GFR Calculation BUN/Creatinine Ratio Glucose Calculated Osmolality Lactic Acid 3.7 H Calcium Total Bilirubin AST ALT Alkaline Phosphatase Lactate Dehydrogenase Total Creatine Kinase CK-MB (CK-2) Troponin I Total Protein Albumin Globulin Albumin/Globulin Ratio Amylase Lipase Urine Color Urine Appearance Urine pH Ur Specific [place] Urine Protein Urine Glucose (UA) Urine Ketones Urine Blood Urine Nitrate Urine Bilirubin Urine Urobilinogen Urine Leukocytes Urine RBC Urine WBC Urine Bacteria Ur Culture Indicated? - Diagnostic Findings Procedure: Chest x-ray: image reviewed by me, report reviewed by me (Clear)
--- NOTE | 2017-02-14 12:31 | ECHO Report ---
Javier George 02/14/2017 Exam Date: 11:01 Referring Physician: Aubree Cobb Technologist: CLEOPATRA Age: 46 Ht (in): 71 Wt (lb): 158 MExam [facility] Gender: Echo [id number]: Sepsis, UTI, hx spinal cord injury Indications:with paraplegia, Chronic pain syndrome, Hypotension, Fever BP: 107 / 82 HR: 110 SinusRhythm: Technical Quality: IMPRESSIONS Normal left ventricular size, with normal wall thickness, with mild global hypokinesis. Estimated left ventricular ejection fraction 40%. Normal diastolic function. No significant valvular abnormalities. MEASUREMENTS (Male / Female) Normal Values 2D ECHO LV Diastolic Diameter PLAX 4.7 cm 4.2 - 5.9 / 3.9 - 5.3 cm LV Systolic Diameter PLAX 3.7 cm LV Fractional Shortening PLAX 20.9 % IVS Diastolic Thickness 0.8 cm 0.6 - 1.0 / 0.6 - 0.9 cm LVPW Diastolic Thickness 0.9 cm 0.6 - 1.0 / 0.6 - 0.9 cm RV Internal Dim ED PLAX 2.8 cm Aortic Root Diameter 3.6 cm LA Systolic Diameter LX 2.3 cm 3.0 - 4.0 / 2.7 - 3.8 cm DOPPLER TR Peak Velocity 266.0 cm/s TR Peak Gradient 28.3 mmHg FINDINGS Left Ventricle Normal left ventricular size, with normal wall thickness, with mildly global hypokinesis. Estimated left ventricular ejection fraction 40%. Normal diastolic function. Right Ventricle The right ventricle is normal in size and function. Right Atrium Normal right atrial size. Left Atrium Normal left atrial size. Mitral Valve Structurally normal mitral valve, without stenosis, with mild insufficiency. Aortic Valve Structurally normal aortic valve, without stenosis or insufficiency. Tricuspid Valve Structurally normal tricuspid valve, with mild insufficiency. Estimated pulmonary artery systolic pressure 28 mmHg plus right atrial pressure. Pulmonic Valve The pulmonic valve is not well visualized. Pericardium No pericardial effusion. Aorta The aortic root is of normal size. Jeffrey Summers (Electronically Signed) 14 February 2017 Final Date: 12:30
--- NOTE | 2017-02-14 13:07 | Ultrasound Report ---
History: Acute kidney injury Date: 02/14/2017 Study: Bilateral renal ultrasound kidneys only Comparison exam: No previous renal ultrasounds available Real-time ultrasound images are captured and archived. The right kidney measures 10.9 x 4.5 x 6.1 cm maximum dimensions; the left kidney measures 9.8 x 5.4 x 5.7 cm. There is no hydronephrosis or abnormal perinephric fluid. The renal parenchyma is slightly hyperechoic to the hepatic parenchyma compatible with infiltrating and/or fibrosing medical renal parenchymal disease. There is no focal renal mass or cyst. There is gross color Doppler flow to either kidney. Impression: There is evidence to suggest mild diffuse medical renal parenchymal disease PROCEDURE INTERPRETED AT [facility] Final Report Signed by: Dr. Annmarie Silva
[2017-02-14] MEDS: SKIN HEALING OINT (AQUAPHOR) 50 GM TUBE TOP SCH (14:43)
[2017-02-14] MEDS: DOCUSATE SODIUM 100 MG CAPSULE PO SCH (21:24)
[2017-02-15] MEDS: VANCOMYCIN INJ 1,000 MG in SODIUM CHLORIDE 0.9% 250 ML IV SCH (02:09)
[2017-02-15] MEDS: PIPERACILLIN/TAZOBACTAM 3,375 MG in SODIUM CHLORIDE 0.9% 100 ML IV SCH (03:16)
[2017-02-15] MEDS: SODIUM CHLORIDE 0.9% 1,000 ML IV SCH ×4 (04:15→20:57)
[2017-02-15] MEDS ORDERED: diphenhydrAMINE CAP 25 MG CAPSULE PO ONE (05:16)
[2017-02-15 05:20] LABS: Basophils % 0.1 % (0.0-0.8); Hematocrit 31.2 VOL% (42.0-52.0); Hemoglobin 10.4 GM/DL (14.0-18.0); Immature Granulocytes % 8.1 %; Immature Granulocytes Absolute 1.82 #; Lymphocytes # 0.8 10*3/uL (1.4-4.0); Lymphocytes % 3.5 % (21.2-54.2); Mean Corpuscular HGB Conc 33.3 GM/DL (32-36); Mean Corpuscular Hemoglobin 28 PG (27-34); Mean Corpuscular Volume 82.5 FL (87-102); Monocytes % 4.2 % (1.7-12.7); Neutrophils # 18.9 10*3/uL (1.4-7.4); Neutrophils % 84.1 % (38.7-73.9); Platelet Count 107 T/CUMM (130-400); Red Blood Count 3.78 MC/CUMM (3.8-5.5); Red Cell Distribution Width 15.9 % (9.3-17.3); White Blood Count 22.5 T/CUMM (4-12)
[2017-02-15 05:56] LABS: Band Neutrophils 3 % (0-10); Lymphocytes 5 % (20-55); Platelet Estimate Decreased; Segmented Neutrophils 88 % (50-85); Total Cells Counted 100
[2017-02-15 05:59] LABS: Calcium 7.5 MG/DL (8.5-10.1); Osmolality,Calculated 289.7 MOS/KG (273-304); Potassium 4.5 MMOL/L (3.5-5.1)
--- NOTE | 2017-02-15 07:32 | Family Practice Progress Note ---
Family Practice - PN: Subj Interval history: Patient seen and examined in the ICU, Temperature is improving, last T-max 100.2 yesterday feeling better than yesterday. Patient does not complain of palpitations, no nausea or vomiting. Feeling stiffness over the extremities bilaterally Has indwelling catheter, requesting his home medications to be started back, narcos and muscle relaxants, Patient developed allergy rash with IV Zosyn this morning, Benadryl 1 given and Zosyn was held. Patient is on chronic pain medication, goes to pain clinic with ,([place] , fentanyl patch, baclofen, gabapentin noted from the clinic notes) Exam (Progress Note) - Constitutional Vitals: Period Temp Pulse Resp BP Sys/Ribera Pulse Ox Last 24 Hr 97.7 F-100.2 F 90-121 11-26 81-122/64-88 90-100 Exam: GENERAL APPEARANCE: alert and oriented X3, , in no acute distress, Has indwelling catheter in place. HEENT: normal. EYES: extraocular movement intact (EOMI), conjunctiva clear, normal. NECK/THYROID: neck supple, full range of motion, no cervical lymphadenopathy, no thyromegaly. HEART: Tachycardic mild with heart rate of 102/min, irregular rhythm, no murmurs, rubs, gallops. LUNGS: clear to auscultation bilaterally, no wheezes, rales, rhonchi. ABDOMEN: Mildly distended, nontender. no organomegaly , bowel sounds present. EXTREMITIES: no edema. Decubitus foot ulcers NEUROLOGIC: alert and oriented, cranial nerves 2-12 grossly intact, strength UE , right3/5, left2/5. Lower extremity strength bilaterally 1 /5 with contracture at left upper extremity more than right. Results - Labs CBC & BMP: 02/15/17 04:22 02/15/17 04:22 Lab Results: I have reviewed the past 24 hour labs - Impressions Cultures drawn on 02/14/2017: Blood culture grew gram-negative tenzin 1, urine culture grew gram-negative rods, awaiting culture sensitivity report Assessment and Plan (1) Sepsis Status: Acute Assessment and plan: Improving, secondary to UTI, On day 2 Vanc, D/C Zosyn. Will add Primaxin, patient has improved RFT's today. Awaiting culture sensitivity results 2. Hypotension, improving will continue IV fluids, normal saline. 3. History of DVT, status post IVC filter, on Xarelto, continue. 4. Functional quadriplegia, chronic secondary to cervical spinal cord injury, has decubitus ulcers, follow surgery recommendation 5. A. fib, asymptomatic new, will follow cardiology recommendations Current Visit: Yes (2) Urinary tract infection Status: Acute Current Visit: Yes (3) History of DVT (deep vein thrombosis) Status: Chronic Current Visit: No (4) Hypotension Status: Acute Current Visit: Yes (5) Paraplegia Status: Chronic Current Visit: No (6) Spinal cord injury Status: Chronic Current Visit: No (7) Chronic constipation Status: Chronic Current Visit: Yes
--- NOTE | 2017-02-15 08:01 | EKG Report ---
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
--- NOTE | 2017-02-15 08:14 | General Surgery Progress Note ---
Assessment and Plan (1) Decubitus ulcer of right heel, stage 1 Status: Acute Assessment and plan: Impression: Stage I decubitus right heel and first metatarsal head area Plan: Wound care with offloading and padding 02/15/2017. Patient having some pain issues and he has a pain patient with possibly Dr. Donaldson. Some report that his blood pressure still runs a little low. No real ulcerations of the heels and will just try to continue protective care. Current Visit: Yes (2) Spinal cord injury Status: Chronic Assessment and plan: Impression: Quadriplegia functional Plan: Protective care sacrum and hip and back Current Visit: No (3) History of DVT (deep vein thrombosis) Status: Chronic Assessment and plan: Impression: History of DVT Plan: Lovenox and compression stockings Current Visit: No (4) Sepsis Status: Acute Assessment and plan: Impression: Sepsis with hypotension probably urosepsis Plan: Antibiotics and hospitalist following Current Visit: Yes Subjective Patient reports: Present: no new complaints, other (Having some pain issues) Exam - Constitutional Vitals: Period Temp Pulse Resp BP Sys/Ribera Pulse Ox Last 24 Hr 97.7 F-100.2 F 82-121 11-26 81-122/64-88 90-100 General appearance: mild distress - Head Head exam: Present: normal inspection - Neck Neck exam: Present: normal inspection - Respiratory Respiratory exam: Present: rales - Cardiovascular Cardiovascular exam: Present: RRR - GI/Abdominal GI/Abdominal exam: Present: soft - Extremities Exam Extremities exam: Present: other (Heels are stable as well as the foot with no signs of any real ulceration) - Skin Skin exam: Present: normal color, warm, dry Results - Labs CBC & BMP: 02/15/17 04:22 02/15/17 04:22 Lab Results: I have reviewed the past 24 hour labs
--- NOTE | 2017-02-15 08:40 | Cardiology Progress Note ---
Assessment and Plan (1) Sepsis Status: Acute Assessment and plan: Mr. 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 He was admitted with G- urosepsis, hypotension, tachycardia, atrial fibrillation. The blood pressure responded to IV fluids, the heart rate is well controlled, around 100 bpm and A. fib. History of DVT, IVC filter, on Xarelto. -His hemodynamics improved. Part of the hypotension was likely related to his neurological condition, impaired ability to compensate in sepsis. -AF. He is not symptomatic from tachyarrhythmia at this time. Plan to start low -dose beta-sherrie tomorrow, if pressure stays stable off pressors today. Mild CMP on echo -Continue anticoagulation with Xarelto. PAF, history of DVT. Current Visit: Yes (2) Urinary tract infection Status: Acute Current Visit: Yes (3) Hypotension Status: Acute Current Visit: Yes (4) Paraplegia Status: Chronic Current Visit: No (5) History of DVT (deep vein thrombosis) Status: Chronic Current Visit: No (6) New onset atrial fibrillation Status: Acute Current Visit: Yes (7) Presence of IVC filter Status: Chronic Current Visit: Yes Cardiology - PN: Subj Interval history: Hypotension resolved, he is off pressors. Atrial fibrillation, heart rate trending around 100. Exam (Progress Note) - Constitutional Vitals: Period Temp Pulse Resp BP Sys/Ribera Pulse Ox Last 24 Hr 97.7 F-100.2 F 82-121 11-26 81-122/64-88 90-100 General appearance: normal weight, no acute distress, other (Paralyzed) - Head Head exam: Present: normal inspection, normocephalic - Eye Eye exam: Absent: conjunctival injection, scleral icterus Pupils: Absent: dilated - ENT ENT exam: Present: normal external ear exam - Neck Neck exam: Present: normal inspection - Respiratory Respiratory exam: Present: clear to auscultation bilaterally - Cardiovascular Cardiovascular exam: Present: irregular rhythm. Absent: JVD, systolic murmur - GI/Abdominal GI/Abdominal exam: Present: normal bowel sounds. Absent: distended, firm - Extremities Exam Extremities exam: Present: edema (No edema) - Neurological Exam Neurological exam: Present: alert, oriented X3 - Psychiatric Psychiatric exam: Present: normal affect, normal mood - Skin Skin exam: Present: normal color, warm. Absent: cyanosis Result/EKG - Labs CBC & BMP: 02/15/17 04:22 02/15/17 04:22 Lab Results: I have reviewed the past 24 hour labs Labs: Laboratory Results - last 24 hr 02/14/17 02/15/17 02/15/17 13:45 04:22 04:22 WBC 22.5 H D RBC 3.78 L Hgb 10.4 L Hct 31.2 L MCV 82.5 L MCH 28 MCHC 33.3 RDW 15.9 Plt Count 107 L MPV 10.0 Neut % (Auto) 84.1 H Lymph % (Auto) 3.5 L [place] % (Auto) 4.2 Eos % (Auto) 0.0 Baso % (Auto) 0.1 Neut # (Auto) 18.9 H Lymph # (Auto) 0.8 L [place] # (Auto) 1.0 H Eos # (Auto) 0.0 Baso # (Auto) 0.0 Total Counted 100 Immature Gran % 8.1 Nucleated RBC % 0.0 Immature Gran # 1.82 Segmented Neutrophils 88 H Band Neutrophils 3 Lymphocytes 5 L Monocytes 4 Nucleated RBCs # 0.00 Platelet Estimate Decreased Immature Plt Fraction 0.0 Sodium 145 Potassium 4.5 Chloride 117 H Carbon Dioxide 22 Anion Gap 10.5 BUN 17 Creatinine 1.10 GFR Calculation 101 BUN/Creatinine Ratio 15.00 Glucose 106 Calculated Osmolality 289.7 Calcium 7.5 L Magnesium 2.0 Total Creatine Kinase 319 H D - EKG EKG results: interpreted by me
[2017-02-15] MEDS: RIVAROXABAN 20 MG TABLET PO SCH (08:47)
[2017-02-15] MEDS: MEROPENEM 1,000 MG in SODIUM CHLORIDE 0.9% 100 ML IV SCH ×2 (08:47→16:49)
[2017-02-15] MEDS: PANTOPRAZOLE 40 MG TABLET PO SCH (08:47)
[2017-02-15] MEDS: DOCUSATE SODIUM 100 MG CAPSULE PO SCH ×2 (08:47→20:53)
[2017-02-15] MEDS: GABAPENTIN 600 MG TABLET PO SCH ×4 (08:47→20:52)
[2017-02-15] MEDS: BACLOFEN 10 MG TABLET PO SCH ×3 (08:47→16:49)
[2017-02-15] MEDS: SKIN HEALING OINT (AQUAPHOR) 50 GM TUBE TOP SCH (12:25)
[2017-02-16] MEDS: MEROPENEM 1,000 MG in SODIUM CHLORIDE 0.9% 100 ML IV SCH ×4 (00:09→23:15)
[2017-02-16 01:46] LABS: Basophils % 0.1 % (0.0-0.8); Eosinophils # 0.1 10*3/uL (0.0-0.87); Eosinophils % 0.5 % (0.00-10.9); Hematocrit 31.4 VOL% (42.0-52.0); Hemoglobin 10.8 GM/DL (14.0-18.0); Immature Granulocytes % 0.3 %; Immature Granulocytes Absolute 0.04 #; Lymphocytes # 1.2 10*3/uL (1.4-4.0); Lymphocytes % 9.7 % (21.2-54.2); Mean Corpuscular HGB Conc 34.4 GM/DL (32-36); Mean Corpuscular Hemoglobin 28 PG (27-34); Mean Corpuscular Volume 80.9 FL (87-102); Mean Platelet Volume 9.7 FL (9.6-12.0); Monocytes # 0.5 10*3/uL (0.11-0.8); Monocytes % 4.1 % (1.7-12.7); Neutrophils # 10.3 10*3/uL (1.4-7.4); Neutrophils % 85.3 % (38.7-73.9); Red Blood Count 3.88 MC/CUMM (3.8-5.5); White Blood Count 12.1 T/CUMM (4-12)
[2017-02-16 01:49] LABS: Platelet Count 90 T/CUMM (130-400)
[2017-02-16 02:08] LABS: Band Neutrophils 3 % (0-10); Lymphocytes 9 % (20-55); Segmented Neutrophils 88 % (50-85)
[2017-02-16 02:09] LABS: Platelet Estimate Decreased
[2017-02-16 02:10] LABS: Total Cells Counted 100
[2017-02-16] MEDS: SODIUM CHLORIDE 0.9% 1,000 ML IV SCH ×6 (02:24→17:47)
[2017-02-16] MEDS: VANCOMYCIN INJ 1,000 MG in SODIUM CHLORIDE 0.9% 250 ML IV SCH ×2 (02:24→15:53)
[2017-02-16 02:28] LABS: Calcium 7.6 MG/DL (8.5-10.1); Osmolality,Calculated 287.7 MOS/KG (273-304); Potassium 3.8 MMOL/L (3.5-5.1)
--- NOTE | 2017-02-16 07:34 | Family Practice Progress Note ---
Family Practice - PN: Subj Interval history: Patient seen and examined in the ICU, Temperature is improving, last T-max 99.8 yesterday feeling overall better. Patient does not complain of palpitations, no nausea or vomiting. Feeling stiffness, pain over the extremities bilaterally Has indwelling catheter, No overnight events reported by the nurse. Patient is on chronic pain medication, goes to pain clinic with ,([place] , fentanyl patch, baclofen, gabapentin noted from the clinic notes) Exam (Progress Note) - Constitutional Vitals: Period Temp Pulse Resp BP Sys/Ribera Pulse Ox Last 24 Hr 97.7 F-99.8 F 93-124 10-29 100-145/69-97 96-100 Exam: GENERAL APPEARANCE: alert and oriented X3, , in no acute distress, Has indwelling catheter in place. HEENT: normal. EYES: extraocular movement intact (EOMI), conjunctiva clear, normal. NECK/THYROID: neck supple, full range of motion, no cervical lymphadenopathy, no thyromegaly. HEART: Tachycardic mild with heart rate of 104/min, regular rhythm today , no murmurs, rubs, gallops. LUNGS: clear to auscultation bilaterally, no wheezes, rales, rhonchi. ABDOMEN: Mildly distended, nontender. no organomegaly , bowel sounds present. EXTREMITIES: no edema. Decubitus foot ulcers, with dressing and padding NEUROLOGIC: alert and oriented, cranial nerves 2-12 grossly intact, strength UE , right3/5, left2/5. Lower extremity strength bilaterally 1 /5 with contracture at left upper extremity more than right. Results - Labs CBC & BMP: 02/16/17 01:41 02/16/17 01:41 Lab Results: I have reviewed the past 24 hour labs - Impressions Urine culture gram-negative rods, blood culture gram-negative rods 2 from 2016, awaiting culture sensitivity report Assessment and Plan (1) Sepsis Status: Acute Assessment and plan: Improving, secondary to UTI, On day 3 Vanc, on day 2 IV Merrem, acute renal failure improved. Will decrease IV fluids. 2. Hypotension, improved, 3. History of DVT, status post IVC filter, on Xarelto, continue. 4. 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 every 4. 5. A. fib, asymptomatic new, currently sinus rhythm/tachycardic, add metoprolol 12.5 p.o. twice daily, will follow cardiology recommendations Transfer patient to a monitored bed.consult PT/OT in AM. Patient status/condition discussed with the caregiver, Mrs. George, his mother. Current Visit: Yes (2) Urinary tract infection Status: Acute Current Visit: Yes (3) History of DVT (deep vein thrombosis) Status: Chronic Current Visit: No (4) Hypotension Status: Acute Current Visit: Yes (5) Paraplegia Status: Chronic Current Visit: No (6) Spinal cord injury Status: Chronic Current Visit: No (7) Chronic constipation Status: Chronic Current Visit: Yes
[2017-02-16] MEDS: DOCUSATE SODIUM 100 MG CAPSULE PO SCH ×2 (08:39→20:45)
[2017-02-16] MEDS: RIVAROXABAN 20 MG TABLET PO SCH (08:39)
[2017-02-16] MEDS: BACLOFEN 10 MG TABLET PO SCH ×3 (08:39→17:03)
[2017-02-16] MEDS: GABAPENTIN 600 MG TABLET PO SCH ×4 (08:39→20:46)
[2017-02-16] MEDS: PANTOPRAZOLE 40 MG TABLET PO SCH (08:40)
[2017-02-16] MEDS ORDERED: fentaNYL 25 MCG/HR PATCH TRANSDERM SCH (09:00)
--- NOTE | 2017-02-16 09:01 | Cardiology Progress Note ---
Assessment and Plan (1) Sepsis Status: Acute Assessment and plan: Mr. 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 He was admitted with G- urosepsis, hypotension, tachycardia, atrial fibrillation. The blood pressure responded to IV fluids, the heart rate is well controlled, around 100 bpm and A. fib. History of DVT, IVC filter, on Xarelto. -His hemodynamics improved. Part of the hypotension was likely related to his neurological condition, impaired ability to compensate in sepsis. -PAF. Now back in SR. He is not symptomatic from tachyarrhythmia at this time. Start metoprolol 12.5 mg twice daily, titrate slowly -Continue anticoagulation with Xarelto. PAF, history of DVT. Current Visit: Yes (2) Urinary tract infection Status: Acute Current Visit: Yes (3) Hypotension Status: Acute Current Visit: Yes (4) Paraplegia Status: Chronic Current Visit: No (5) History of DVT (deep vein thrombosis) Status: Chronic Current Visit: No (6) New onset atrial fibrillation Status: Acute Current Visit: Yes (7) Presence of IVC filter Status: Chronic Current Visit: Yes Cardiology - PN: Subj Interval history: He converted back to sinus tachycardia. Feeling better. Blood pressure is now normal. Exam (Progress Note) - Constitutional Vitals: Period Temp Pulse Resp BP Sys/Ribera Pulse Ox Last 24 Hr 97.7 F-99.8 F 93-124 10-29 100-145/69-97 96-100 General appearance: normal weight, no acute distress - Head Head exam: Present: normal inspection, normocephalic - Eye Eye exam: Absent: conjunctival injection, scleral icterus Pupils: Absent: dilated - ENT ENT exam: Present: normal external ear exam - Neck Neck exam: Present: normal inspection - Respiratory Respiratory exam: Present: clear to auscultation bilaterally - Cardiovascular Cardiovascular exam: Present: regular rate and rhythm - GI/Abdominal GI/Abdominal exam: Present: normal bowel sounds. Absent: distended - Extremities Exam Extremities exam: Present: normal inspection, normal capillary refill, edema (1+ ) - Neurological Exam Neurological exam: Present: other (paralyzed) - Psychiatric Psychiatric exam: Present: normal affect, normal mood - Skin Skin exam: Present: normal color, warm. Absent: cyanosis Result/EKG - Labs CBC & BMP: 02/16/17 01:41 02/16/17 01:41 Lab Results: I have reviewed the past 24 hour labs Labs: Laboratory Results - last 24 hr 02/16/17 02/16/17 02/16/17 01:41 01:41 01:41 WBC 12.1 H D RBC 3.88 Hgb 10.8 L Hct 31.4 L MCV 80.9 L MCH 28 MCHC 34.4 RDW 16.0 Plt Count 90 L MPV 9.7 Neut % (Auto) 85.3 H Lymph % (Auto) 9.7 L [place] % (Auto) 4.1 Eos % (Auto) 0.5 Baso % (Auto) 0.1 Neut # (Auto) 10.3 H Lymph # (Auto) 1.2 L [place] # (Auto) 0.5 Eos # (Auto) 0.1 Baso # (Auto) 0.0 Total Counted 100 Immature Gran % 0.3 Nucleated RBC % 0.0 Immature Gran # 0.04 Segmented Neutrophils 88 H Band Neutrophils 3 Lymphocytes 9 L Nucleated RBCs # 0.00 Platelet Estimate Decreased Immature Plt Fraction 0.0 Sodium 145 Potassium 3.8 Chloride 116 H Carbon Dioxide 24 Anion Gap 8.8 BUN 12 Creatinine 0.80 GFR Calculation 133 BUN/Creatinine Ratio 15.00 Glucose 98 Calculated Osmolality 287.7 Calcium 7.6 L Magnesium 2.0 Vancomycin Trough 5.2 L - EKG EKG results: interpreted by me
[2017-02-16] MEDS: METOPROLOL TARTRATE 25 MG TABLET PO SCH ×2 (09:50→20:46)
[2017-02-16] MEDS: SKIN HEALING OINT (AQUAPHOR) 50 GM TUBE TOP SCH (15:29)
[2017-02-17] MEDS: VANCOMYCIN INJ 1,000 MG in SODIUM CHLORIDE 0.9% 250 ML IV SCH (02:25)
[2017-02-17 04:49] LABS: Basophils % 0.2 % (0.0-0.8); Eosinophils # 0.2 10*3/uL (0.0-0.87); Eosinophils % 1.3 % (0.00-10.9); Hematocrit 34.2 VOL% (42.0-52.0); Hemoglobin 11.8 GM/DL (14.0-18.0); Immature Granulocytes % 1.6 %; Immature Granulocytes Absolute 0.19 #; Lymphocytes % 16.8 % (21.2-54.2); Mean Corpuscular HGB Conc 34.5 GM/DL (32-36); Mean Corpuscular Hemoglobin 28 PG (27-34); Mean Platelet Volume 10.5 FL (9.6-12.0); Monocytes % 8.7 % (1.7-12.7); Neutrophils # 8.3 10*3/uL (1.4-7.4); Neutrophils % 71.4 % (38.7-73.9); Platelet Count 119 T/CUMM (130-400); Red Blood Count 4.22 MC/CUMM (3.8-5.5); Red Cell Distribution Width 15.9 % (9.3-17.3); White Blood Count 11.7 T/CUMM (4-12)
[2017-02-17 05:23] LABS: Calcium 8.2 MG/DL (8.5-10.1); Potassium 3.8 MMOL/L (3.5-5.1)
[2017-02-17 06:13] LABS: Eosinophils 1 % (0-10); Lymphocytes 15 % (20-55); Metamyelocytes 1 %; Platelet Estimate Decreased; Segmented Neutrophils 75 % (50-85); Total Cells Counted 100
[2017-02-17] MEDS: METOPROLOL TARTRATE 25 MG TABLET PO SCH (09:01)
[2017-02-17] MEDS: DOCUSATE SODIUM 100 MG CAPSULE PO SCH ×2 (09:01→20:54)
[2017-02-17] MEDS: MEROPENEM 1,000 MG in SODIUM CHLORIDE 0.9% 100 ML IV SCH (09:01)
[2017-02-17] MEDS: BACLOFEN 10 MG TABLET PO SCH ×3 (09:02→17:48)
[2017-02-17] MEDS: GABAPENTIN 600 MG TABLET PO SCH ×4 (09:02→20:54)
[2017-02-17] MEDS: PANTOPRAZOLE 40 MG TABLET PO SCH (09:02)
[2017-02-17] MEDS: RIVAROXABAN 20 MG TABLET PO SCH (09:03)
--- NOTE | 2017-02-17 09:03 | Family Practice Progress Note ---
Family Practice - PN: Subj Interval history: Patient seen and examined on the third floor, No temperature spikes since past 24 hours, urine/blood culture 2 grew Klebsiella pneumonia. feeling better. Patient willing to start physical therapy today, no nausea or vomiting. Feeling stiffness, pain over the extremities bilaterally Has indwelling catheter, No overnight events reported by the nurse. Patient is on chronic pain medication, goes to pain clinic with ,([place] , fentanyl patch, baclofen, gabapentin noted from the clinic notes) Exam (Progress Note) - Constitutional Vitals: Period Temp Pulse Resp BP Sys/Ribera Pulse Ox Last 24 Hr 97.5 F-98.3 F 95-109 12-20 116-149/75-101 97-100 Exam: GENERAL APPEARANCE: alert and oriented X3, , in no acute distress, Has indwelling catheter in place. HEENT: normal. EYES: extraocular movement intact (EOMI), conjunctiva clear, normal. NECK/THYROID: neck supple, full range of motion, no cervical lymphadenopathy, no thyromegaly. HEART: Tachycardic mild with heart rate of 104/min, regular rhythm today , no murmurs, rubs, gallops. LUNGS: clear to auscultation bilaterally, no wheezes, rales, rhonchi. ABDOMEN: Mildly distended, nontender. no organomegaly , bowel sounds present. EXTREMITIES: no edema. Decubitus foot ulcers, with dressing and padding NEUROLOGIC: alert and oriented, cranial nerves 2-12 grossly intact, strength UE , right3/5, left2/5. Lower extremity strength bilaterally 1 /5 with contracture at left upper extremity more than right. Results - Labs CBC & BMP: 02/17/17 04:13 02/17/17 04:13 Lab Results: I have reviewed the past 24 hour labs - Impressions Urine and blood cultures grew from 02/14/2017, Klebsiella pneumonia, sensitivity report available Assessment and Plan (1) Sepsis Status: Acute Assessment and plan: Resolved secondary to UTI, antibiotics adjusted as per ID recommendation, repeat blood cultures today 2 , start Rocephin 2 g IV daily, day 1, 2. Hypotension resolved 3. History of DVT, status post IVC filter, on Xarelto, continue. 4. Functional quadriplegia, chronic secondary to cervical spinal cord injury, has decubitus ulcers, follow surgery recommendation Pain uncontrolled, will resume fentanyl patch, increase [place] to 10/325 p.o. every 4. 5. A. fib, asymptomatic new, currently sinus rhythm/tachycardic, on metoprolol 12.5 p.o. twice daily, will follow cardiology recommendations Start physical therapy today Patient status/condition discussed with the caregiver, Mrs. George, his mother. Current Visit: Yes (2) Urinary tract infection Status: Acute Current Visit: Yes (3) History of DVT (deep vein thrombosis) Status: Chronic Current Visit: No (4) Hypotension Status: Acute Current Visit: Yes (5) Paraplegia Status: Chronic Current Visit: Yes (6) Spinal cord injury Status: Chronic Current Visit: No (7) Chronic constipation Status: Chronic Current Visit: Yes
--- NOTE | 2017-02-17 10:04 | Cardiology Progress Note ---
Tayla Le April, RN, am scribing for, and in the presence of, El Montes De Oca MD 10:04. Assessment and Plan (1) New onset atrial fibrillation Status: Acute Assessment and plan: 1. 46-year-old much improved after having urosepsis with history of paraplegia , and transient atrial fibrillation with RVR (now with mild sinus tachycardia heart rate in the 100s range) doing reasonably well clinically. 2. He is already on anticoagulation with history of DVTs and IVC filter with Xarelto 3. Mild thrombocytopenia noted 4. Leukocytosis is resolved and he is afebrile 5. Echocardiogram shows normal left atrial size with mild cardiomyopathy and ejection fraction 40% 6. Increase beta-sherrie to Toprol 25 mg twice daily to treat his cardiomyopathy and to promote normal sinus rhythm 7. 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 Summers Summary: Mr. George is a 46 year old male without known history of coronary artery disease, not routinely followed by cardiology. Patient has cardiac risk factors significant for sedentary lifestyle. He has a past medical history of DVT with IVC filter. History of brain injury secondary to fall from a bridge 2 years ago, now paraplegic. He is paralyzed from the waist down. He presented to [facility] February 13 with altered mental status and fever. Patient reports that he developed fever Friday afternoon. He also had associated headache intermittent confusion, diaphoresis and dizziness. He is wheelchair-bound at home. He denies any associated chest pain, heaviness or tightness. No associated shortness of breath, dysuria or hematuria. He denies any heart racing or palpitations. Never been diagnosed with atrial fibrillation or any other cardiac dysrhythmias. Patient's caregiver noticed that he was intermittently confused and talking out of his head. Therefore, she thought that he needed to be further evaluated in the emergency department. Upon arrival to the emergency room, he was noted to be in sinus tachycardia and hypotensive. He was transported to the ICU and admitted under hospital medicine service. Overnight, he was noted to be in atrial fibrillation with intermittent rapid ventricular response. Subsequently, cardiology has been consulted as this is a new diagnosis. He was medically anticoagulated on Xarelto for DVT, this has been continued. He has converted to sinus rhythm. In reviewing the rhythm strips, it looks like he converted some time on February 15. February 17, 2017: Mr. George is seen resting in bed. He denies any chest pain or palpitations. Oxygen is in use via nasal cannula and he states he is slightly short of breath but not much. 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 His hypotension has resolved. Lopressor 12.5 p.o. twice daily has been started, Xarelto is being continued. Echocardiogram done February 12 with ejection fraction 40%, no significant valvular abnormalities noted. His white count is normal today. All other labs unremarkable. Exam (Progress Note) - Constitutional Vitals: Period Temp Pulse Resp BP Sys/Ribera Pulse Ox Last 24 Hr 97.5 F-98.3 F 95-109 12-20 116-149/75-109 97-100 General appearance: normal weight, no acute distress - Head Head exam: Absent: abrasion, hematoma - Eye Eye exam: Absent: periorbital swelling, laceration to eyelids Pupils: Present: AGUSTIN - Neck Neck exam: Absent: lymphadenopathy, tenderness - Respiratory Respiratory exam: Present: clear to auscultation bilaterally, other (Oxygen via use via nasal cannula). Absent: accessory muscle use, chest wall tenderness - Cardiovascular Cardiovascular exam: Present: regular rate and rhythm, tachycardia - GI/Abdominal GI/Abdominal exam: Present: normal bowel sounds, soft. Absent: distended, tenderness - Extremities Exam Extremities exam: Present: other (Good pedal pulses present, heel protectors in place). Absent: edema - Neurological Exam Neurological exam: Present: alert, oriented X3 - Psychiatric Psychiatric exam: Present: normal affect, normal mood - Skin Skin exam: Present: warm, dry Result/EKG - Labs CBC & BMP: 02/17/17 04:13 02/17/17 04:13 Lab Results: I have reviewed the past 24 hour labs Labs: Laboratory Results - last 24 hr 02/17/17 02/17/17 04:13 04:13 WBC 11.7 RBC 4.22 Hgb 11.8 L Hct 34.2 L MCV 81.0 L MCH 28 MCHC 34.5 RDW 15.9 Plt Count 119 L D MPV 10.5 Neut % (Auto) 71.4 Lymph % (Auto) 16.8 L [place] % (Auto) 8.7 Eos % (Auto) 1.3 Baso % (Auto) 0.2 Neut # (Auto) 8.3 H Lymph # (Auto) 2.0 [place] # (Auto) 1.0 H Eos # (Auto) 0.2 Baso # (Auto) 0.0 Total Counted 100 Immature Gran % 1.6 Nucleated RBC % 0.0 Immature Gran # 0.19 Segmented Neutrophils 75 Lymphocytes 15 L Monocytes 7 Eosinophils 1 Basophils 1.0 H Metamyelocytes 1 Nucleated RBCs # 0.00 Platelet Estimate Decreased Immature Plt Fraction 0.0 Sodium 143 Potassium 3.8 Chloride 109 H Carbon Dioxide 27 Anion Gap 10.8 BUN 7 Creatinine 0.70 GFR Calculation 145 BUN/Creatinine Ratio 10.00 Glucose 77 Calculated Osmolality 281.0 Calcium 8.2 L Magnesium 2.0 - Diagnostic Findings Procedure: Chest x-ray: report reviewed by ks - EKG EKG results: interpreted by ks EKG shows: tachycardia, sinus rhythm ITavon Randall Scott, MD, personally performed the services described in this documentation, ascribed by Taniya Bourne RN in my presence, and it is both accurate and complete 004 .
--- NOTE | 2017-02-17 11:56 | Infectious Disease Progress ---
Assessment and Plan (1) Urinary tract infection Status: Acute Current Visit: Yes (2) Sepsis Status: Suspected Assessment and plan: Klebsiella septicemia due to urinary tract infection. Patient clinically better. Recommendations: 1. Repeat blood cultures 2 sets 2. Discontinue vancomycin 3. De-escalate from meropenem to ceftriaxone 2 g daily 4. Once repeat blood cultures are negative patient will continue antibiotic therapy until February 23. Will probably switch to oral levofloxacin 750 mg daily when ready for discharge home. Discussed with patient's mother at bedside Current Visit: Yes (3) Spinal cord injury Status: Chronic Current Visit: No Infectious Disease - PN: Subj Interval history: Patient out of ICU reports doing much better. No fever. No nausea vomiting or diarrhea. Tolerating normal diet. Infectious Disease Exam (PN) - Constitutional Vitals: Temp Pulse Resp BP Pulse Ox 97.5 F L 100 H 18 125/75 99 02/17/17 07:30 02/17/17 07:30 02/17/17 07:30 02/17/17 07:30 02/17/17 07:30 General appearance: normal weight, no acute distress Exam: General appearance: no acute distress - Eye Eye exam: Present: EOMI. no icterus Pupils: Present: AGUSTIN - ENT ENT exam: no oral exudates - Respiratory Respiratory exam: vesicular BS, no crepitations or wheezes - Cardiovascular Cardiovascular exam: regular rate and rhythm, no murmurs - GI/Abdominal GI/Abdominal exam: normal bowel sounds, soft, non-tender, no organomegaly or mass - Extremities Exam Extremities exam: no edema - Skin Skin exam: no rash Results - Labs CBC & BMP: 02/17/17 04:13 02/17/17 04:13 Lab Results: I have reviewed the past 24 hour labs (Blood and urine cultures positive for Klebsiella pneumonia)
[2017-02-17] MEDS: SKIN HEALING OINT (AQUAPHOR) 50 GM TUBE TOP SCH (12:13)
[2017-02-17] MEDS: METOPROLOL SUCCINATE XL 25 MG TABLET PO SCH ×2 (12:13→20:54)
--- NOTE | 2017-02-17 12:30 | General Surgery Progress Note ---
Assessment and Plan - Time spent with patient Time spent with patient: Less than 30 minutes (1) Decubitus ulcer of right heel, stage 1 Status: Acute Assessment and plan: 02/17/17 Stable right heel ulcer. We'll continue with moisturizing and offloading, and watch for other signs of progression or pressure changes. This should continue to improve. His mother has been his primary caregiver and has overall done a good job with maintaining his skin integrity and preventing breakdown. We'll watch the blisters closely but they are very superficial and should heal. I'm concerned that he is using the heating pad directly on his intact skin and at risk for local burn. I've spoken to the patient and his mother about this as well as the nurses, who have gone about educating the patient and his family regarding heating pad use, especially in the situation of a cord injury patient, and they will monitor and reinforce skin safety. Current Visit: Yes Subjective Patient reports: Present: no new complaints, feels better. Absent: nausea, vomiting, shortness of breath Exam - Constitutional Vitals: Period Temp Pulse Resp BP Sys/Ribera Pulse Ox Last 24 Hr 97.5 F-98.3 F 95-106 18-20 116-149/75-89 97-100 General appearance: no acute distress, other (Pt is awake, alert, and in no apparent distress. He is without complaints and is cheerful and joking; his mother is at the bedside. He has a heating pad on his right forearm; when questioned, he says it's 'to keep him warm.') - Respiratory Respiratory exam: Absent: rhonchi, wheezes - Cardiovascular Cardiovascular exam: Present: RRR - Extremities Exam Extremities exam: Present: other (RUE without erythema or unusual induration. I examined the right forearm, thinking he might have an infusion infiltration site that was giving him discomfort but was not able to detect a specific area. The heating pad was directly in contact with the patient's skin, and this was removed by myself and Patti Ahuja RN, who was with me during the visit and who examined the site as well, also finding no specific site of infiltration, abnormality, or skin breach. We instructed the patient and his mother to always place a contact layer of cotton fabric between the skin and heat source, particularly in a patient with prior spinal cord injury. Right lower extremity posterior heel ulcer is softer; this looks to have been in an area of associated old scar, and his mother confirms this. Some of the old hyperkeratotic skin debris is looser now, and easily comes off with the dressing. Lateral foot is softer as well. I see no new pressure changes on the foot. There are some superficial blisters along the anterior lower right leg, just above the level of the heel protection boots. These look to be related to skin friction, possibly from his boots vs. coban dressings we were previously using in the ICU. This area is about 1.5 x 4cm in length. The blister easily disrupted during the exam, with clear fluid draining and pink healthy viable tissue beneath. There is no edema nor ischemic changes.) Results - Labs CBC & BMP: 02/17/17 04:13 02/17/17 04:13 Lab Results: I have reviewed the past 24 hour labs
[2017-02-17] MEDS: cefTRIAXone 2,000 MG in SODIUM CHLORIDE 0.9% 100 ML IV SCH (13:27)
[2017-02-18] MEDS: BACLOFEN 10 MG TABLET PO SCH ×2 (08:24→12:31)
[2017-02-18] MEDS: PANTOPRAZOLE 40 MG TABLET PO SCH (08:24)
[2017-02-18] MEDS: DOCUSATE SODIUM 100 MG CAPSULE PO SCH (08:24)
[2017-02-18] MEDS: GABAPENTIN 600 MG TABLET PO SCH ×2 (08:24→12:31)
[2017-02-18] MEDS: RIVAROXABAN 20 MG TABLET PO SCH (08:24)
[2017-02-18] MEDS: METOPROLOL SUCCINATE XL 25 MG TABLET PO SCH (08:24)
--- NOTE | 2017-02-18 08:58 | Discharge Summary ---
Hospital Course - Hospital Course Hospital Course: PCP: Dr. lilly, Consultants: Surgery for decubitus feet ulcers, Infectious disease for urosepsis Pharmacist Intern for A. fib, new onset. HPI :As per ER history, at the time of admission Brought in for elevated temperature, diaphoresis, since several hours Prior intermittent confusion at his home, and palpitations. Although he was described as talking out of his head earlier, In ER, examination was alert and oriented 3. found to be hypotensive and tachycardic. And in acute renal failure. The family denied any cough, nausea, vomiting, dysuria, or hematuria in recent days. History of quadriplegia, but more paralyzed waist down,Secondary to brain injury cause of fall from a bridge few years ago. history of DVT and IVC filter placement, Patient was admitted to ICU, for urosepsis, acute kidney injury empiric antibiotics started IV vancomycin, Zosyn. IV fluids ordered, Sinclair's catheter in place from admission, Blood cultures and urine cultures were drawn in the ER. Daily labs were followed, necessary imaging was done . Strict I's and O's were followed. Patient developed allergy to IV Zosyn on 02/15/2017. IV Merrem was started on and continued till the discharge, on 02/17/2017 Rocephin was started as per cultures and ID recommendation. Urine and blood cultures grew Klebsiella pneumonia. Repeat blood cultures were drawn on 02/17/2017. Acute kidney injury resolved. During the hospital stay patient went into A. fib, new onset, asymptomatic, beta blockers was started. Feet decubitus ulcers were taken care by the surgeon, Patient has severe spasms, contractures of the upper extremities, and weakness of the upper and lower extremities, muscle relaxants and pain meds were started , once the blood pressure was stable. PT/OT was consulted during the hospital stay once the patient got stable. As per ID recommendation, at the time of discharge, levofloxacin 750mg daily until 03/03 repeat blood cultures 2 weeks after completing oral antibiotic Tx (ie about 03/17 ) to ensure no relapse of the septicemia, [facility] for the blood cultures to be drawn on 03/17. Patient would be discharged with home health, has already [facility] in place, along with physical therapy Diagnosis - Discharge Diagnosis (1) Sepsis Status: Resolved (2) Urinary tract infection Status: Resolved (3) History of DVT (deep vein thrombosis) Status: Chronic (4) Hypotension Status: Resolved (5) Paraplegia Status: Chronic (6) Spinal cord injury Status: Chronic (7) Chronic constipation Status: Chronic (8) Atrial fibrillation Status: Resolved (9) Acute kidney injury Status: Resolved Specialty Discharge - Follow Up or Referrals Follow up with: Sonal Tiwari MD [Physician] - (CALL NEEDED) Jeffrey Summers MD [Physician] - 03/04/17 1:30 pm (EKG) Matthias Lilly MD [Primary Care Provider] - 03/13/17 10:00 am (WITH BLOOD CULTURES) Javier Otero MD [Physician] - (CALL NEEDED) Discharge Plan - Discharge Data Disposition: Home Health Service Condition at Discharge: Stable Discharge Diet: regular diet, no caffiene Activity: resume usual activities as tolerated - Discharge Medications New Levofloxacin Tab [Levaquin Tab] 750 mg PO DAILY #14 tablet Continue fentaNYL [Fentanyl 25 mcg/hr Patch] 25 patch TOP Q3DAY Baclofen 10 mg PO TID W/MEALS Rivaroxaban [Xarelto] 20 mg PO DAILY Hydrocodone/Acetaminophen [[place] 10-325 Tablet] 1 each PO TID PRN PRN Reason: Pain Gabapentin 600 mg PO QID - Follow Up or Referral Follow Up: Jeffrey Summers MD [Physician] - 03/04/17 1:30 pm (EKG) Matthias Lilly MD [Primary Care Provider] - 03/13/17 10:00 am (WITH BLOOD CULTURES) Javier Otero MD [Physician] - (CALL NEEDED) Sonal Tiwari MD [Physician] - (CALL NEEDED) - Forms/Instructions Instructions: Urinary Tract Infection in Men (DC), How to Prevent Pressure Ulcers (DC), Sepsis (DC) Exam - Constitutional Vitals: Period Temp Pulse Resp BP Sys/Ribera Pulse Ox Last 24 Hr 97.6 F-99.0 F 92-102 16-18 113-147/73-95 95-97 Exam: GENERAL APPEARANCE: alert and oriented X3, , in no acute distress, Has indwelling catheter in place. HEENT: normal. EYES: extraocular movement intact (EOMI), conjunctiva clear, normal. NECK/THYROID: neck supple, full range of motion, no cervical lymphadenopathy, no thyromegaly. HEART: Tachycardic mild with heart rate of 104/min, regular rhythm today , no murmurs, rubs, gallops. LUNGS: clear to auscultation bilaterally, no wheezes, rales, rhonchi. ABDOMEN: Mildly distended, nontender. no organomegaly , bowel sounds present. EXTREMITIES: no edema. Decubitus foot ulcers, with dressing and padding NEUROLOGIC: alert and oriented, cranial nerves 2-12 grossly intact, strength UE , right3/5, left2/5. Lower extremity strength bilaterally 1 /5 with contracture at left upper extremity more than right. Discharge Results Procedures and tests throughout hospitalization: Pending Orders 02/17/17 12:13 Blood Culture Stat Labs on day of discharge: From 02/14/2017 blood cultures set of stool, urine cultures positive for Klebsiella pneumonia, sensitivity report was available. Repeat blood cultures 2 drawn on 02/17/2017 - Impressions Chest x-ray Impression: Normal chest x-ray Head CT Impression: No evidence of abnormality demonstrated. Renal ultrasound Impression: There is evidence to suggest mild diffuse medical renal parenchymal disease Echocardiogram, IMPRESSIONS Normal left ventricular size, with normal wall thickness, with mild global hypokinesis. Estimated left ventricular ejection fraction 40%. Normal diastolic function. No significant valvular abnormalities. DS: Provider Date of admission: 02/14/17 01:32 Primary care physician: Matthias Lilly MD Attending physician on admission: Matthias Lilly MD Consults: 02/14/17 06:05 Consult to Dietitian [CONS] Routine Reason for Dietitian: Other Consult Comment: Admission assessment trigger 02/14/17 06:27 Consult to Physician [CONS] Routine Comment: sepsis Consulting Provider: Sonal Tiwari Consulting Provider Notified: Yes When should Consulting Provider be notified: Now Person Notified: chet cruz Date Notified: 02/17/17 Time Notified: 09:06 02/14/17 06:28 Consult to Physician [CONS] Routine Comment: decubitus Consulting Provider: Javier Otero Consult Notification Comment: Dr. Otero aware of patient 02/14/17 11:14 Consult to Physician [CONS] Routine Comment: new onset afib Consulting Provider: Roka,Jeffrey Person Notified: dr. summers Date Notified: 02/14/17 Time Notified: 10:00 02/17/17 10:10 Consult to Physical Therapy [CONS] Routine Reason for Physical Therapy: Evaluate and Treat Discharging clinician: Matthias Lilly MD
--- NOTE | 2017-02-18 09:23 | General Surgery Progress Note ---
Assessment and Plan - Time spent with patient Time spent with patient: Less than 30 minutes (1) Decubitus ulcer of right heel, stage 1 Status: Acute Assessment and plan: 02/17/17 Stable right heel ulcer. We'll continue with moisturizing and offloading, and watch for other signs of progression or pressure changes. This should continue to improve. His mother has been his primary caregiver and has overall done a good job with maintaining his skin integrity and preventing breakdown. We'll watch the blisters closely but they are very superficial and should heal. I'm concerned that he is using the heating pad directly on his intact skin and at risk for local burn. I've spoken to the patient and his mother about this as well as the nurses, who have gone about educating the patient and his family regarding heating pad use, especially in the situation of a cord injury patient, and they will monitor and reinforce skin safety. 02/18/2017. Right lower extremity with small pressure ulcer of the right heel, much improved. We will continue to offload this; I have spoken with his mother , who has done an excellent job in caring for his skin up to this point. We recommend continued Aquaphor, phone heel protection and offloading. We will be happy to see him again as needed but will schedule no formal follow-up appointment. Current Visit: Yes Subjective Patient reports: Present: no new complaints, feels better Exam - Constitutional Vitals: Period Temp Pulse Resp BP Sys/Ribera Pulse Ox Last 24 Hr 97.6 F-99.0 F 92-102 16-18 113-147/73-95 95-97 General appearance: no acute distress - Extremities Exam Extremities exam: Present: normal capillary refill, other (Right heel area is much softer. There is no new skin breakdown and no new pressure area. Anterior right lower leg superficial skin friction blister has almost completely resolved. There is no associated erythema or other skin change. He is wearing his offloading heel boots. The left lower leg is without pressure change or skin breakdown.). Absent: edema Results - Labs CBC & BMP: 02/17/17 04:13 02/17/17 04:13
--- NOTE | 2017-02-18 09:32 | Cardiology Progress Note ---
Assessment and Plan (1) New onset atrial fibrillation Status: Acute Assessment and plan: 1. 46-year-old much improved after having urosepsis with history of paraplegia , and transient atrial fibrillation with RVR (now with mild sinus tachycardia heart rate in the 100s range) doing reasonably well clinically. 2. He is already on anticoagulation with history of DVTs and IVC filter with Xarelto 3. Mild thrombocytopenia noted 4. Leukocytosis is resolved and he is afebrile 5. Echocardiogram shows normal left atrial size with mild cardiomyopathy and ejection fraction 40% 6. Increase beta-sherrie to Toprol 25 mg twice daily to treat his cardiomyopathy and to promote normal sinus rhythm 7. Gradually increasing activity level; will continue to follow with you February 18, 2017: 1. Mr. George hemodynamically stable and normal sinus rhythm with heart rate in the 90s 2. On good medical therapy from a cardiac standpoint with mild cardiomyopathy and EF 40% 3. Follow with Dr. Henriquez in about 2 weeks time with EKG 4. We will sign off Current Visit: Yes (2) Acute kidney injury Status: Acute Current Visit: Yes (3) Hypotension Status: Acute Current Visit: Yes (4) Sepsis Status: Acute Current Visit: Yes (5) Presence of IVC filter Status: Chronic Current Visit: Yes (6) History of DVT (deep vein thrombosis) Status: Chronic Current Visit: No (7) Paraplegia Status: Chronic Current Visit: Yes Cardiology - PN: Subj Interval history: Mr. George is feeling well today without complaint. He is having no palpitations chest pain or shortness of breath per Exam (Progress Note) - Constitutional Vitals: Period Temp Pulse Resp BP Sys/Ribera Pulse Ox Last 24 Hr 97.6 F-99.0 F 92-102 16-18 113-147/73-95 95-97 General appearance: normal weight, no acute distress - Head Head exam: Present: normal inspection, normocephalic, atraumatic - Neck Neck exam: Present: normal inspection - Respiratory Respiratory exam: Present: clear to auscultation bilaterally. Absent: stridor, wheezes - Cardiovascular Cardiovascular exam: Present: regular rate and rhythm. Absent: diastolic murmur , rubs - GI/Abdominal GI/Abdominal exam: Present: soft. Absent: tenderness - Extremities Exam Extremities exam: Absent: edema Result/EKG - Labs CBC & BMP: 02/17/17 04:13 02/17/17 04:13
--- NOTE | 2017-02-18 11:04 | Infectious Disease Progress ---
Assessment and Plan (1) Urinary tract infection Status: Acute Current Visit: Yes (2) Sepsis Status: Suspected Assessment and plan: Klebsiella septicemia due to urinary tract infection. Patient clinically much better. Recommendations: 1. I am ok with patient going home today on levofloxacin 750mg daily until 03/03 2. Patient can follow with PCP Dr Lilly on discharge and I recommend he has repeat blood cultures 2 weeks after completing oral antibiotic Tx (ie about 03/17 ) to ensure no relapse of the septicemia. I can see patient on a prn basis in the office. Current Visit: Yes (3) Spinal cord injury Status: Chronic Current Visit: No Infectious Disease - PN: Subj Interval history: Patient generally feeling better, just a little achy. No fever. No N, V, D. Infectious Disease Exam (PN) - Constitutional Vitals: Temp Pulse Resp BP Pulse Ox 97.6 F 92 H 18 137/89 96 02/18/17 07:14 02/18/17 07:14 02/18/17 07:14 02/18/17 07:14 02/18/17 07:14 General appearance: normal weight, no acute distress Exam: General appearance: no acute distress - Eye Eye exam: Present: EOMI. no icterus Pupils: Present: AGUSTIN - ENT ENT exam: no oral exudates - Respiratory Respiratory exam: vesicular BS, no crepitations or wheezes - Cardiovascular Cardiovascular exam: regular rate and rhythm, no murmurs - GI/Abdominal GI/Abdominal exam: normal bowel sounds, soft, non-tender, no organomegaly or mass - Extremities Exam Extremities exam: no edema - Skin Skin exam: no rash Results - Labs CBC & BMP: 02/17/17 04:13 02/17/17 04:13 Lab Results: I have reviewed the past 24 hour labs Specialty Discharge - Follow Up or Referrals Follow up with: Sonal Tiwari MD [Physician] - (CALL NEEDED) Jeffrey Summers MD [Physician] - 2 Weeks (EKG) Matthias Lilly MD [Primary Care Provider] - 1 Month (WITH BLOOD CULTURES) Javier Otero MD [Physician] - (CALL NEEDED)
[2017-02-18] MEDS: cefTRIAXone 2,000 MG in SODIUM CHLORIDE 0.9% 100 ML IV SCH (12:31)
[2017-02-18] MEDS: SKIN HEALING OINT (AQUAPHOR) 50 GM TUBE TOP SCH (12:38)
[2017-02-18 16:41] VITALS: BP 136/85
== END 2017-02-18 17:30 | disposition home health service (06) | DRG 871 ==
LOC: EDUNIT# → EDBD → N.ED 00:31 → N.EDINP 01:32 → N.ICU 02:06 → N.3E 02-16 15:03
PROVIDERS: ADMIT Family Medicine; ATTEND Family Medicine

== ENCOUNTER 2021-02-24 14:14 | Inpatient (IN) ==
[2021-02-24 17:48] LABS: Basophils % 0.3 % (0.0-0.8); Eosinophils # 0.1 10*3/uL (0.0-0.87); Eosinophils % 0.6 % (0.00-10.9); Hematocrit 44.3 VOL% (42.0-52.0); Hemoglobin 13.7 GM/DL (14.0-18.0); Immature Granulocytes % 0.4 %; Immature Granulocytes Absolute 0.05 #; Lymphocytes # 3.2 10*3/uL (1.4-4.0); Lymphocytes % 27.9 % (21.2-54.2); Mean Corpuscular HGB Conc 30.9 GM/DL (32-36); Mean Corpuscular Volume 85.9 FL (87-102); Mean Platelet Volume 8.6 FL (9.6-12.0); Monocytes % 7.9 % (1.7-12.7); Neutrophils % 62.9 % (38.7-73.9); Platelet Count 313 T/CUMM (130-400); Red Blood Count 5.16 MC/CUMM (3.8-5.5); Red Cell Distribution Width 15.4 % (9.3-17.3); White Blood Count 11.5 T/CUMM (4-12)
[2021-02-24 18:20] LABS: Alanine Aminotransferase 21 U/L (16-61); Albumin 3.6 G/DL (3.4-5.0); Alkaline Phosphatase 73 U/L (45-117); Aspartate Amino Transferase 16 U/L (0-37); Bilirubin,Total < 0.39 MG/DL (0.20-1.00); Blood Urea Nitrogen 11 MG/DL (7-18); Calcium 9.3 MG/DL (8.5-10.1); Carbon Dioxide 30 MMOL/L (21-32); Estimated Glom Filtration Rate 129 ML/MIN; Glucose 78 MG/DL (74-106); Osmolality,Calculated 272.7 MOS/KG (273-304); Potassium 4.2 MMOL/L (3.5-5.1); Sodium 138 MMOL/L (136-145); Total Protein 8.5 G/DL (6.4-8.2)
[2021-02-24] MEDS ORDERED: diphenhydrAMINE 50 MG/1 ML VIAL ONE (19:42)
[2021-02-24] MEDS ORDERED: methylPREDNISolone SOD SUC 125 MG/2 ML VIAL ONE (19:42)
[2021-02-24] MEDS ORDERED: ALBUTEROL/IPRATROPIUM 3 ML NEB RESP TX ONE (19:43)
[2021-02-24] MEDS ORDERED: diphenhydrAMINE 50 MG/1 ML VIAL IV STA (20:26)
[2021-02-24] MEDS ORDERED: methylPREDNISolone SOD SUC 125 MG/2 ML VIAL IV STA (20:27)
[2021-02-24] MEDS ORDERED: ACETAMINOPHEN 325 MG TABLET PO PRN (21:00)
[2021-02-24] MEDS ORDERED: ALBUTEROL/IPRATROPIUM 3 ML NEB RESP TX STA (21:00)
[2021-02-24] MEDS ORDERED: ONDANSETRON 4 MG/2 ML VIAL IV PRN (21:00)
[2021-02-24 21:45] LABS: ABG Base Excess 2.7 MMOL/L (-2.5-2.5); ABG HCO3 26.8 MMOL/L (20-26); ABG Oxygen Saturation 99.5 % (95-100); ABG PH 7.378 (7.35-7.45); ABG TCO2 24.9 MMOL/L (23-27)
[2021-02-24] MEDS: LEVOFLOXACIN INJ 500 MG/100 ML PREMIX IV SCH (21:54)
[2021-02-25] MEDS: ALBUTEROL/IPRATROPIUM 3 ML NEB RESP TX PRN (00:30)
[2021-02-25] MEDS: LORazepam 2 MG/1 ML VIAL IV PRN ×2 (00:50→16:31)
[2021-02-25] MEDS: DEXTROSE 5% NACL 0.9% 1,000 ML IV SCH ×3 (00:51→16:30)
[2021-02-25] MEDS: BACLOFEN 10 MG TABLET PO SCH ×4 (01:09→21:18)
[2021-02-25 05:54] LABS: Basophils % 0.1 % (0.0-0.8); Hematocrit 41.6 VOL% (42.0-52.0); Hemoglobin 12.9 GM/DL (14.0-18.0); Immature Granulocytes % 0.5 %; Immature Granulocytes Absolute 0.04 #; Lymphocytes % 12.5 % (21.2-54.2); Mean Corpuscular Volume 85.1 FL (87-102); Mean Platelet Volume 9.2 FL (9.6-12.0); Neutrophils % 85.9 % (38.7-73.9); Platelet Count 318 T/CUMM (130-400); Red Blood Count 4.89 MC/CUMM (3.8-5.5); Red Cell Distribution Width 15.3 % (9.3-17.3)
[2021-02-25] MEDS: methylPREDNISolone SOD SUC 40 MG/1 ML VIAL IV SCH ×3 (06:09→21:18)
[2021-02-25 06:27] LABS: Alanine Aminotransferase 22 U/L (16-61); Albumin 3.4 G/DL (3.4-5.0); Alkaline Phosphatase 67 U/L (45-117); Aspartate Amino Transferase 16 U/L (0-37); Bilirubin,Total < 0.39 MG/DL (0.20-1.00); Blood Urea Nitrogen 11 MG/DL (7-18); Calcium 9.3 MG/DL (8.5-10.1); Carbon Dioxide 29 MMOL/L (21-32); Estimated Glom Filtration Rate 135 ML/MIN; Glucose 132 MG/DL (74-106); Osmolality,Calculated 275.7 MOS/KG (273-304); Potassium 3.9 MMOL/L (3.5-5.1); Sodium 138 MMOL/L (136-145); Total Protein 8.7 G/DL (6.4-8.2)
[2021-02-25] MEDS: PANTOPRAZOLE 40 MG TABLET PO SCH (09:21)
[2021-02-25] MEDS: GABAPENTIN 600 MG TABLET PO SCH ×4 (09:21→21:18)
[2021-02-25] MEDS: CLORAZEPATE 3.75 MG TABLET PO PRN ×2 (10:57→21:18)
[2021-02-25] MEDS ORDERED: RIVAROXABAN 10 MG TABLET PO SCH (17:00)
[2021-02-25] MEDS: ARFORMOTEROL 15 MCG/2 ML NEB RESP TX SCH (19:37)
[2021-02-25] MEDS: BUDESONIDE 0.5 MG/2 ML NEB RESP TX SCH (19:37)
[2021-02-25] MEDS: LEVOFLOXACIN INJ 500 MG/100 ML PREMIX IV SCH (21:18)
[2021-02-26] MEDS: LORazepam 2 MG/1 ML VIAL IV PRN ×2 (01:03→12:57)
[2021-02-26] MEDS: methylPREDNISolone SOD SUC 40 MG/1 ML VIAL IV SCH ×3 (05:49→23:26)
[2021-02-26] MEDS: BUDESONIDE 0.5 MG/2 ML NEB RESP TX SCH ×2 (07:30→19:55)
[2021-02-26] MEDS: ARFORMOTEROL 15 MCG/2 ML NEB RESP TX SCH ×2 (07:30→19:55)
[2021-02-26 09:01] LABS: Basophils % 0.1 % (0.0-0.8); Hematocrit 45.2 VOL% (42.0-52.0); Hemoglobin 13.9 GM/DL (14.0-18.0); Immature Granulocytes % 0.4 %; Immature Granulocytes Absolute 0.09 #; Lymphocytes # 0.9 10*3/uL (1.4-4.0); Lymphocytes % 4.5 % (21.2-54.2); Mean Corpuscular HGB Conc 30.8 GM/DL (32-36); Mean Corpuscular Volume 86.8 FL (87-102); Mean Platelet Volume 8.7 FL (9.6-12.0); Monocytes % 5.5 % (1.7-12.7); Neutrophils % 89.5 % (38.7-73.9); Platelet Count 300 T/CUMM (130-400); Red Blood Count 5.21 MC/CUMM (3.8-5.5); Red Cell Distribution Width 15.7 % (9.3-17.3); White Blood Count 20.4 T/CUMM (4-12)
[2021-02-26 09:20] LABS: Band Neutrophils 1 % (0-10); Lymphocytes 5 % (20-55); Platelet Estimate Adequate; Segmented Neutrophils 91 % (50-85); Total Cells Counted 100
[2021-02-26 09:23] LABS: Alanine Aminotransferase 51 U/L (16-61); Albumin 3.2 G/DL (3.4-5.0); Alkaline Phosphatase 68 U/L (45-117); Aspartate Amino Transferase 30 U/L (0-37); Bilirubin,Total < 0.39 MG/DL (0.20-1.00); Blood Urea Nitrogen 7 MG/DL (7-18); Calcium 8.8 MG/DL (8.5-10.1); Carbon Dioxide 29 MMOL/L (21-32); Estimated Glom Filtration Rate 136 ML/MIN; Glucose 140 MG/DL (74-106); Osmolality,Calculated 278.4 MOS/KG (273-304); Potassium 3.8 MMOL/L (3.5-5.1); Sodium 140 MMOL/L (136-145); Total Protein 8.6 G/DL (6.4-8.2)
[2021-02-26] MEDS: PANTOPRAZOLE 40 MG TABLET PO SCH (11:39)
[2021-02-26] MEDS: GABAPENTIN 600 MG TABLET PO SCH ×3 (11:39→18:55)
[2021-02-26] MEDS: BACLOFEN 10 MG TABLET PO SCH ×3 (11:39→23:26)
[2021-02-26] MEDS: ALBUTEROL/IPRATROPIUM 3 ML NEB RESP TX PRN (12:05)
[2021-02-26] MEDS ORDERED: NALOXONE 0.4 MG/ML VIAL ONE (16:59)
[2021-02-26] MEDS ORDERED: NALOXONE 0.4 MG/ML VIAL IV PRN (17:00)
[2021-02-26] MEDS ORDERED: ALBUTEROL 2.5 MG/3 ML NEB RESP TX PRN (17:18)
[2021-02-26] MEDS: DEXTROSE 5% NACL 0.9% 1,000 ML IV SCH ×3 (17:19→17:51)
[2021-02-26] MEDS ORDERED: DEXTROSE 50% 25 GM/50 ML VIAL IV PRN (17:21)
[2021-02-26] MEDS ORDERED: GLUCAGON 1 MG VIAL IM PRN (17:21)
[2021-02-26 17:31] LABS: Osmolality,Calculated 284.7 MOS/KG (273-304); Potassium 4.2 MMOL/L (3.5-5.1)
[2021-02-26 17:52] LABS: Basophils % 0.1 % (0.0-0.8); Hematocrit 46.1 VOL% (42.0-52.0); Immature Granulocytes % 1.7 %; Immature Granulocytes Absolute 0.35 #; Lymphocytes # 2.9 10*3/uL (1.4-4.0); Lymphocytes % 13.6 % (21.2-54.2); Mean Corpuscular HGB Conc 28.4 GM/DL (32-36); Mean Corpuscular Volume 93.7 FL (87-102); Mean Platelet Volume 9.1 FL (9.6-12.0); Monocytes % 5.3 % (1.7-12.7); Neutrophils % 79.3 % (38.7-73.9); Platelet Count 322 T/CUMM (130-400); Red Blood Count 4.92 MC/CUMM (3.8-5.5); Red Cell Distribution Width 15.3 % (9.3-17.3); White Blood Count 20.9 T/CUMM (4-12)
[2021-02-26 17:54] LABS: Alanine Aminotransferase 71 U/L (16-61); Alkaline Phosphatase 70 U/L (45-117); Aspartate Amino Transferase 57 U/L (0-37); Bilirubin,Total < 0.39 MG/DL (0.20-1.00); Blood Urea Nitrogen 9 MG/DL (7-18); Calcium 9.1 MG/DL (8.5-10.1); Carbon Dioxide 36 MMOL/L (21-32); Estimated Glom Filtration Rate 102 ML/MIN; Glucose 296 MG/DL (74-106); Osmolality,Calculated 286.5 MOS/KG (273-304); Potassium 4.2 MMOL/L (3.5-5.1); Sodium 139 MMOL/L (136-145)
[2021-02-26] MEDS: PANTOPRAZOLE 40 MG VIAL IV SCH (17:54)
[2021-02-26] MEDS: INSULIN REGULAR 100 UNIT/ML SUBCUT SCH (17:54)
[2021-02-26 17:58] LABS: Hemoglobin 13.1 GM/DL (14.0-18.0)
[2021-02-26 18:10] LABS: Band Neutrophils 4 % (0-10); Lymphocytes 17 % (20-55); Platelet Estimate Adequate; Segmented Neutrophils 70 % (50-85); Total Cells Counted 100
[2021-02-26 18:23] LABS: ABG Base Excess -0.1 MMOL/L (-2.5-2.5); ABG HCO3 24.3 MMOL/L (20-26); ABG Oxygen Saturation 95.3 % (95-100); ABG PH 7.237 (7.35-7.45); ABG TCO2 26.7 MMOL/L (23-27)
[2021-02-26 18:26] LABS: ABG PCO2 69.1 MM HG (35-48)
[2021-02-26] MEDS: MIDAZOLAM 100 MG in SODIUM CHLORIDE 0.9% 80 ML IV PRN (18:34)
[2021-02-26] MEDS: PHENYLEPHRINE DRIP 40 MG/250 ML PREMIX IV PRN (18:48)
[2021-02-26 19:56] LABS: ABG Base Excess -0.9 MMOL/L (-2.5-2.5); ABG HCO3 23.7 MMOL/L (20-26); ABG Oxygen Saturation 99.2 % (95-100); ABG PCO2 49.8 MM HG (35-48); ABG PH 7.324 (7.35-7.45); ABG TCO2 22.8 MMOL/L (23-27); Allen Test Positive; Pt O2 Delivery Device Ventilator
[2021-02-26] MEDS ORDERED: ENOXAPARIN 40 MG/0.4 ML SYRINGE SUBCUT SCH (21:00)
[2021-02-26] MEDS: LEVOFLOXACIN INJ 500 MG/100 ML PREMIX IV SCH (23:26)
[2021-02-27] MEDS: MIDAZOLAM 100 MG in SODIUM CHLORIDE 0.9% 80 ML IV PRN ×2 (00:20→12:30)
[2021-02-27] MEDS: INSULIN REGULAR 100 UNIT/ML SUBCUT SCH ×4 (00:23→17:55)
[2021-02-27] MEDS: PHENYLEPHRINE DRIP 40 MG/250 ML PREMIX IV PRN ×3 (04:42→20:15)
[2021-02-27 05:00] LABS: Allen Test Positive; Pt O2 Delivery Device Ventilator
[2021-02-27 05:01] LABS: ABG Base Excess 6.3 MMOL/L (-2.5-2.5); ABG HCO3 30.2 MMOL/L (20-26); ABG PCO2 34.3 MM HG (35-48); ABG PH 7.532 (7.35-7.45); ABG TCO2 24.9 MMOL/L (23-27)
[2021-02-27] MEDS: DEXTROSE 5% NACL 0.9% 1,000 ML IV SCH ×2 (05:25→17:33)
[2021-02-27 05:31] LABS: Basophils % 0.1 % (0.0-0.8); Hemoglobin 12.4 GM/DL (14.0-18.0); Immature Granulocytes % 0.5 %; Lymphocytes % 5.3 % (21.2-54.2); Mean Corpuscular HGB Conc 31.8 GM/DL (32-36); Mean Corpuscular Volume 85.5 FL (87-102); Mean Platelet Volume 8.9 FL (9.6-12.0); Monocytes % 6.9 % (1.7-12.7); Neutrophils % 87.2 % (38.7-73.9); Platelet Count 299 T/CUMM (130-400); Red Blood Count 4.56 MC/CUMM (3.8-5.5); Red Cell Distribution Width 15.1 % (9.3-17.3); White Blood Count 19.5 T/CUMM (4-12)
[2021-02-27 05:52] LABS: Alanine Aminotransferase 87 U/L (16-61); Albumin 2.7 G/DL (3.4-5.0); Alkaline Phosphatase 65 U/L (45-117); Aspartate Amino Transferase 52 U/L (0-37); Bilirubin,Total < 0.39 MG/DL (0.20-1.00); Blood Urea Nitrogen 14 MG/DL (7-18); Calcium 8.9 MG/DL (8.5-10.1); Carbon Dioxide 28 MMOL/L (21-32); Estimated Glom Filtration Rate 114 ML/MIN; Glucose 105 MG/DL (74-106); Potassium 3.4 MMOL/L (3.5-5.1); Sodium 143 MMOL/L (136-145); Total Protein 7.4 G/DL (6.4-8.2)
[2021-02-27] MEDS: methylPREDNISolone SOD SUC 40 MG/1 ML VIAL IV SCH ×3 (05:58→16:28)
[2021-02-27] MEDS: PANTOPRAZOLE 40 MG VIAL IV SCH (05:59)
[2021-02-27] MEDS: ARFORMOTEROL 15 MCG/2 ML NEB RESP TX SCH ×2 (07:34→20:05)
[2021-02-27] MEDS: BUDESONIDE 0.5 MG/2 ML NEB RESP TX SCH ×2 (07:34→20:05)
[2021-02-27 08:41] LABS: INR 1.1; PT Patient Result 12.1 SECS (10.5-12.0)
[2021-02-27] MEDS: BACLOFEN 10 MG TABLET PO SCH ×3 (08:45→22:21)
[2021-02-27 09:48] LABS: Barbiturates Screen,Urine Negative (Negative); Benzodiazepines Screen,Urine Positive (Negative); Cannabinoid Screen,Urine Negative (Negative); Opiate Screen,Urine Positive (Negative); Phencyclidine Screen,Urine Negative (Negative)
[2021-02-27 09:54] LABS: Bacteria,Urine Occasional /HPF (Few); Bilirubin,Urine Negative (Negative); Blood, Urine Moderate mg/dL (Negative); Glucose,Urine (UA) Negative (Negative); Hyaline Casts,Urine 1 /LPF (0-3); Ketones,Urine Negative (Negative); Mucus,Urine Occasional /LPF (Occasional); Nitrite,Urine Negative (Negative); Protein,Urine Negative; RBC,Urine 23 /HPF (0-4); Squamous Epithelial Cell,Urine Occasional /HPF (0-10); Uric Acid Crystals,Urine Occasional /HPF (<1); Urine Appearance CLEAR (Clear); Urine Color Yellow (Yellow); Urine Specific Gravity 1.018 (1.001-1.035); Urine Urobilinogen < 2.0 EU/DL (0.2-1.0)
[2021-02-27] MEDS ORDERED: LORazepam 2 MG/1 ML VIAL IV ONE (12:35)
[2021-02-27 12:56] LABS: Glucose,CSF 80 MG/DL (40-70)
[2021-02-27 13:02] LABS: Appearance,CSF Clear; Lymphocytes,CSF 26 %; Monocytes,CSF 7 %; Neutrophils,CSF 66 %; Red Blood Cell,CSF 944 C/CUMM; White Blood Cell,CSF 8 C/CUMM
[2021-02-27] MEDS: fentaNYL INJ 1,250 MCG in SODIUM CHLORIDE 0.9% 225 ML IV PRN ×2 (13:42→20:15)
[2021-02-27] MEDS ORDERED: ACETAMINOPHEN 325 MG/10.15 ML UDCUP PO SCH (15:30)
[2021-02-27] MEDS: diphenhydrAMINE 25 MG/10 ML UDCUP PO SCH (16:28)
[2021-02-27] MEDS: IMMUNE GLOBULIN 10% 20 GM, IMMUNE GLOBULIN 10% 10 GM in PREMIX 1 EACH IV SCH (17:33)
[2021-02-27] MEDS: LEVOFLOXACIN INJ 500 MG/100 ML PREMIX IV SCH (22:20)
[2021-02-28] MEDS: MIDAZOLAM 100 MG in SODIUM CHLORIDE 0.9% 80 ML IV PRN (00:25)
[2021-02-28] MEDS: fentaNYL INJ 1,250 MCG in SODIUM CHLORIDE 0.9% 225 ML IV PRN ×2 (00:50→07:31)
[2021-02-28] MEDS: INSULIN REGULAR 100 UNIT/ML SUBCUT SCH ×4 (01:13→18:25)
[2021-02-28] MEDS: methylPREDNISolone SOD SUC 40 MG/1 ML VIAL IV SCH ×4 (02:37→18:25)
[2021-02-28] MEDS: DEXTROSE 5% NACL 0.9% 1,000 ML IV SCH ×3 (06:17→18:20)
[2021-02-28 06:39] LABS: Basophils % 0.1 % (0.0-0.8); Hematocrit 33.6 VOL% (42.0-52.0); Hemoglobin 10.9 GM/DL (14.0-18.0); Immature Granulocytes % 0.9 %; Immature Granulocytes Absolute 0.12 #; Lymphocytes # 1.1 10*3/uL (1.4-4.0); Lymphocytes % 8.2 % (21.2-54.2); Mean Corpuscular HGB Conc 32.4 GM/DL (32-36); Mean Corpuscular Volume 83.2 FL (87-102); Mean Platelet Volume 9.1 FL (9.6-12.0); Monocytes % 8.7 % (1.7-12.7); Neutrophils % 82.1 % (38.7-73.9); Platelet Count 219 T/CUMM (130-400); Red Blood Count 4.04 MC/CUMM (3.8-5.5); Red Cell Distribution Width 15.5 % (9.3-17.3); White Blood Count 12.8 T/CUMM (4-12)
[2021-02-28 06:57] LABS: Calcium 8.4 MG/DL (8.5-10.1); Osmolality,Calculated 283.3 MOS/KG (273-304); Potassium 3.5 MMOL/L (3.5-5.1)
[2021-02-28 07:00] LABS: Albumin 2.3 G/DL (3.4-5.0); Bilirubin,Total 1.3 MG/DL (0.20-1.00); Calcium 8.5 MG/DL (8.5-10.1); Osmolality,Calculated 277.7 MOS/KG (273-304); Potassium 3.4 MMOL/L (3.5-5.1); Total Protein 7.1 G/DL (6.4-8.2)
[2021-02-28] MEDS ORDERED: POTASSIUM CHLORIDE 20 MEQ TABLET PO PRN (08:09)
[2021-02-28] MEDS ORDERED: POTASSIUM CHLORIDE RIDER 10 MEQ/100 ML PREMIX IV PRN (08:15)
[2021-02-28 08:55] LABS: ABG Base Excess 4.6 MMOL/L (-2.5-2.5); ABG HCO3 28.6 MMOL/L (20-26); ABG Oxygen Saturation 99.6 % (95-100); ABG PCO2 30.3 MM HG (35-48); ABG PH 7.551 (7.35-7.45); ABG TCO2 23.7 MMOL/L (23-27)
[2021-02-28] MEDS: BACLOFEN 10 MG TABLET PO SCH ×2 (09:40→13:59)
[2021-02-28] MEDS: PANTOPRAZOLE 40 MG VIAL IV SCH (09:40)
[2021-02-28] MEDS: diphenhydrAMINE 25 MG/10 ML UDCUP PO SCH (09:40)
[2021-02-28] MEDS: IMMUNE GLOBULIN 10% 20 GM, IMMUNE GLOBULIN 10% 10 GM in PREMIX 1 EACH IV SCH (10:50)
[2021-02-28] MEDS: ACETAMINOPHEN 325 MG/10.15 ML UDCUP PO SCH (11:38)
[2021-02-28 12:16] LABS: VDRL Spinal Fluid Negative (Negative)
[2021-02-28] MEDS: GABAPENTIN 300 MG CAPSULE PO SCH (14:33)
[2021-02-28] MEDS ORDERED: MORPHINE 2 MG/1 ML SYRINGE IV ONE (15:12)
[2021-02-28] MEDS ORDERED: METOPROLOL TARTRATE 5 MG/5 ML VIAL IV ONE ×2 (15:12→16:39)
[2021-02-28] MEDS: LORazepam 2 MG/1 ML VIAL IV PRN (15:46)
[2021-02-28] MEDS: ALBUTEROL/IPRATROPIUM 3 ML NEB RESP TX PRN (19:42)
[2021-02-28] MEDS: BUDESONIDE 0.5 MG/2 ML NEB RESP TX SCH (19:42)
[2021-02-28] MEDS: ARFORMOTEROL 15 MCG/2 ML NEB RESP TX SCH (21:38)
[2021-03-01] MEDS: BACLOFEN 10 MG TABLET PO SCH ×3 (01:28→16:57)
[2021-03-01] MEDS: LEVOFLOXACIN INJ 500 MG/100 ML PREMIX IV SCH (01:29)
[2021-03-01] MEDS: GABAPENTIN 300 MG CAPSULE PO SCH ×3 (01:29→17:40)
[2021-03-01] MEDS: METOPROLOL TARTRATE 5 MG/5 ML VIAL IV SCH ×4 (01:41→18:35)
[2021-03-01] MEDS: INSULIN REGULAR 100 UNIT/ML SUBCUT SCH ×4 (01:41→18:35)
[2021-03-01] MEDS: methylPREDNISolone SOD SUC 40 MG/1 ML VIAL IV SCH ×3 (03:45→18:35)
[2021-03-01 04:48] LABS: Basophils % 0.1 % (0.0-0.8); Hematocrit 37.2 VOL% (42.0-52.0); Hemoglobin 12.2 GM/DL (14.0-18.0); Immature Granulocytes % 1.1 %; Immature Granulocytes Absolute 0.13 #; Lymphocytes # 0.9 10*3/uL (1.4-4.0); Lymphocytes % 8.1 % (21.2-54.2); Mean Corpuscular HGB Conc 32.8 GM/DL (32-36); Mean Platelet Volume 9.2 FL (9.6-12.0); Monocytes % 7.5 % (1.7-12.7); NRBC # 0.02 10*3/uL; Neutrophils % 83.2 % (38.7-73.9); Platelet Count 221 T/CUMM (130-400); Red Blood Count 4.48 MC/CUMM (3.8-5.5); Red Cell Distribution Width 15.8 % (9.3-17.3); White Blood Count 11.7 T/CUMM (4-12)
[2021-03-01 05:14] LABS: Calcium 8.4 MG/DL (8.5-10.1); Osmolality,Calculated 285.3 MOS/KG (273-304); Potassium 4.2 MMOL/L (3.5-5.1)
[2021-03-01] MEDS: BUDESONIDE 0.5 MG/2 ML NEB RESP TX SCH ×3 (07:40→19:20)
[2021-03-01] MEDS: ARFORMOTEROL 15 MCG/2 ML NEB RESP TX SCH ×3 (07:40→19:20)
[2021-03-01] MEDS: ACETAMINOPHEN 325 MG/10.15 ML UDCUP PO SCH (08:59)
[2021-03-01] MEDS: RIVAROXABAN 20 MG TABLET PO SCH (08:59)
[2021-03-01] MEDS: diphenhydrAMINE 25 MG/10 ML UDCUP PO SCH (08:59)
[2021-03-01] MEDS: PANTOPRAZOLE 40 MG VIAL IV SCH (09:01)
[2021-03-01] MEDS: IMMUNE GLOBULIN 10% 20 GM, IMMUNE GLOBULIN 10% 10 GM in PREMIX 1 EACH IV SCH (10:12)
[2021-03-02] MEDS: BACLOFEN 10 MG TABLET PO SCH ×4 (00:51→20:53)
[2021-03-02] MEDS: GABAPENTIN 300 MG CAPSULE PO SCH ×4 (00:51→20:53)
[2021-03-02] MEDS: LEVOFLOXACIN INJ 500 MG/100 ML PREMIX IV SCH ×2 (00:52→20:52)
[2021-03-02] MEDS: METOPROLOL TARTRATE 5 MG/5 ML VIAL IV SCH ×4 (00:53→18:51)
[2021-03-02] MEDS: INSULIN REGULAR 100 UNIT/ML SUBCUT SCH ×5 (01:02→23:32)
[2021-03-02 05:19] LABS: Basophils % 0.3 % (0.0-0.8); Eosinophils % 0.2 % (0.00-10.9); Hematocrit 38.6 VOL% (42.0-52.0); Hemoglobin 12.7 GM/DL (14.0-18.0); Immature Granulocytes % 1.6 %; Lymphocytes # 1.9 10*3/uL (1.4-4.0); Lymphocytes % 15.2 % (21.2-54.2); Mean Corpuscular HGB Conc 32.9 GM/DL (32-36); Mean Corpuscular Volume 83.4 FL (87-102); Mean Platelet Volume 9.3 FL (9.6-12.0); Monocytes % 8.1 % (1.7-12.7); NRBC # 0.06 10*3/uL; Neutrophils % 74.6 % (38.7-73.9); Platelet Count 215 T/CUMM (130-400); Red Blood Count 4.63 MC/CUMM (3.8-5.5); Red Cell Distribution Width 15.9 % (9.3-17.3); White Blood Count 12.3 T/CUMM (4-12)
[2021-03-02 05:52] LABS: Albumin 2.6 G/DL (3.4-5.0); Bilirubin,Total 0.6 MG/DL (0.20-1.00); Calcium 8.8 MG/DL (8.5-10.1); Potassium 3.8 MMOL/L (3.5-5.1); Total Protein 9.1 G/DL (6.4-8.2)
[2021-03-02] MEDS: PANTOPRAZOLE 40 MG VIAL IV SCH (07:21)
[2021-03-02] MEDS: diphenhydrAMINE 25 MG/10 ML UDCUP PO SCH (10:48)
[2021-03-02] MEDS: ACETAMINOPHEN 325 MG/10.15 ML UDCUP PO SCH (10:48)
[2021-03-02] MEDS: RIVAROXABAN 20 MG TABLET PO SCH (10:49)
[2021-03-02] MEDS: methylPREDNISolone SOD SUC 40 MG/1 ML VIAL IV SCH ×2 (10:49→18:50)
[2021-03-02] MEDS: IMMUNE GLOBULIN 10% 20 GM, IMMUNE GLOBULIN 10% 10 GM in PREMIX 1 EACH IV SCH (10:51)
[2021-03-02 13:22] LABS: West Nile Virus Ab, IgG, CSF Negative (Negative); West Nile Virus Ab, IgM, CSF Negative (Negative)
[2021-03-02] MEDS: ARFORMOTEROL 15 MCG/2 ML NEB RESP TX SCH ×2 (15:19→19:09)
[2021-03-02] MEDS: BUDESONIDE 0.5 MG/2 ML NEB RESP TX SCH ×2 (15:19→19:09)
[2021-03-02] MEDS: DEXTROSE 5% NACL 0.9% 1,000 ML IV SCH ×2 (19:25→19:56)
[2021-03-03] MEDS: METOPROLOL TARTRATE 5 MG/5 ML VIAL IV SCH ×4 (00:26→18:10)
[2021-03-03] MEDS: methylPREDNISolone SOD SUC 40 MG/1 ML VIAL IV SCH ×2 (00:34→09:07)
[2021-03-03 03:05] LABS: Basophils % 0.1 % (0.0-0.8); Hematocrit 39.8 VOL% (42.0-52.0); Hemoglobin 12.7 GM/DL (14.0-18.0); Immature Granulocytes % 1.2 %; Lymphocytes # 1.4 10*3/uL (1.4-4.0); Lymphocytes % 8.7 % (21.2-54.2); Mean Corpuscular HGB Conc 31.9 GM/DL (32-36); Mean Corpuscular Volume 82.6 FL (87-102); Mean Platelet Volume 9.2 FL (9.6-12.0); Monocytes % 4.1 % (1.7-12.7); NRBC # 0.03 10*3/uL; Neutrophils % 85.9 % (38.7-73.9); Platelet Count 216 T/CUMM (130-400); Red Blood Count 4.82 MC/CUMM (3.8-5.5); Red Cell Distribution Width 15.4 % (9.3-17.3)
[2021-03-03 03:21] LABS: Albumin 2.5 G/DL (3.4-5.0); Bilirubin,Total 0.7 MG/DL (0.20-1.00); Calcium 8.7 MG/DL (8.5-10.1); Osmolality,Calculated 272.1 MOS/KG (273-304); Potassium 4.3 MMOL/L (3.5-5.1); Total Protein 10.3 G/DL (6.4-8.2)
[2021-03-03] MEDS: PHENOL 1.4% THROAT SPRAY 177 ML BOTTLE PO PRN ×3 (04:41→12:41)
[2021-03-03] MEDS: DEXTROSE 5% NACL 0.9% 1,000 ML IV SCH ×2 (04:58→12:30)
[2021-03-03] MEDS: PANTOPRAZOLE 40 MG VIAL IV SCH (06:09)
[2021-03-03] MEDS: INSULIN REGULAR 100 UNIT/ML SUBCUT SCH ×3 (06:21→18:42)
[2021-03-03] MEDS: BUDESONIDE 0.5 MG/2 ML NEB RESP TX SCH ×2 (07:20→20:20)
[2021-03-03] MEDS: ARFORMOTEROL 15 MCG/2 ML NEB RESP TX SCH ×2 (07:20→20:20)
[2021-03-03] MEDS: ACETAMINOPHEN 325 MG/10.15 ML UDCUP PO SCH (09:08)
[2021-03-03] MEDS: GABAPENTIN 300 MG CAPSULE PO SCH ×3 (09:08→20:13)
[2021-03-03] MEDS: diphenhydrAMINE 25 MG/10 ML UDCUP PO SCH (09:08)
[2021-03-03] MEDS: RIVAROXABAN 20 MG TABLET PO SCH (09:08)
[2021-03-03] MEDS: BACLOFEN 10 MG TABLET PO SCH ×3 (09:08→20:13)
[2021-03-03] MEDS: IMMUNE GLOBULIN 10% 20 GM, IMMUNE GLOBULIN 10% 10 GM in PREMIX 1 EACH IV SCH (11:02)
[2021-03-03 20:50] VITALS: BP 106/74
[2021-03-03] MEDS ORDERED: methylPREDNISolone SOD SUC 40 MG/1 ML VIAL IV SCH (21:00)
== END 2021-03-03 22:10 | disposition home health service (06) | DRG 208 ==
LOC: EDBD → EDUNIT# → N.ED 14:14 → N.EDINP 20:59 → SUATTDRO 20:59 → N.EDINP 21:59 → N.5E 23:49 → N.EDINP 02-26 17:32 → N.TELEN 02-28 20:20
PROVIDERS: ADMIT Family Medicine; ATTEND Family Medicine